=== PATIENT | male | born 1935 | race Caucasian/White ===

== ENCOUNTER 2020-03-19 14:04 | Outpatient (CLI) | payer MEDICARE, OTHER ==
--- NOTE | 2020-03-19 14:38 | RAD ---
EXAM: Two views chest PROVIDED CLINICAL HISTORY: Dyspnea. COMPARISON: None FINDINGS: Dual lead right subclavian cardiac pacemaking device is noted in place. Left subclavian pacemaking le ads are also seen. Cardiac silhouette and pulmonary vasculature are within normal limits. There is nodular prominence in the right infrahilar location. This may be related to prominence of a central p ulmonary vessel, but mass in this region with be difficult to entirely exclude. Follow-up CT thorax is recommended. The lungs are clear. There is evidence of a small hiatal hernia. Bilateral glenohumer al osteoarthropathy is present with what appears to be intra-articular loose body on the right. Degenerative changes are seen in the spine. IMPRESSION: Nodular density right hilar region. While this may related to prominence of a central pulmonary vesse l, this is asymmetric, and further evaluation with CT thorax is recommended to exclude possibility of an enlarged lymph node or mass..
== END 2020-03-19 14:05 | disposition home or self-care (01) ==
LOC: BICRAD 14:04
PROVIDERS: ATTEND Internal Medicine Pulmonary Disease
DX: R06.00 Dyspnea, unspecified (principal); J98.4 Other disorders of lung
CPT/HCPCS: 71046

== ENCOUNTER 2020-03-27 15:36 | Inpatient (IN) | payer MEDICARE, OTHER ==
--- NOTE | 2020-03-27 16:18 | RAD ---
Chest one view HISTORY: Weakness. COMPARISON: 03/19/2020. FINDINGS: Cardiac silhouette is magnified by projection. Pulmonary vasculature are unremarkable. Mediastinum is midline with a dual lead right subclavian cardiac electronic device and 2 leads from a left subclavian approach. There is calcification of the aorta. Prominence of the right hilum is now more pronounced with slight rightward rotation of the patient. No lobar consolidation or evidence of pneumothorax. Retrocardiac density again demonstrated with appe arance of a hiatal hernia. IMPRESSION : Persistent masslike prominence of the right hilum. Consider correlation with CT chest (with IV contra st) for better correlation.
[2020-03-27 16:41] LABS: Mean Corpuscular HGB CONC 31.6 g/dL (32.0-36.0); Mean Corpuscular Volume 85.5 fL (78.0-98.0); Mean Platelet Volume 8.8 fL (7.4-10.4); Platelet Count 278 thou/uL (130-400); RBC Distribution Width 17.9 % (11.5-14.5); Red Blood Cell (RBC) Count 5.18 mill/uL (4.70-6.10); White Blood Cell (WBC) Count 29.1 thou/uL (4.8-10.8)
[2020-03-27 16:59] LABS: ALT (SGPT) 73 U/L (8-55); AST (SGOT) 53 U/L (5-34); Albumin 3.7 g/dL (3.4-4.8); Alkaline Phosphatase 146 U/L (40-110); Anion Gap 18 mmol/L (10-20); BUN (Urea Nitrogen) 36 mg/dL (8.4-25.7); Bilirubin, Total 2.6 mg/dL (0.2-1.2); Calc. Creatinine Clearance 0 mL/min (70-130); Calcium 8.8 mg/dL (7.8-10.44); Carbon Dioxide 25 mmol/L (23-31); Chloride 100 mmol/L (98-107); Globulin 2.9 g/dL (2.4-3.5); Glucose 336 mg/dL (83-110); Lipase 8 U/L (8-78); Potassium 4.7 mmol/L (3.5-5.1); Protein, Total 6.6 g/dL (5.8-8.1); Sodium 138 mmol/L (136-145)
[2020-03-27 17:09] LABS: Band 21 % (5-11); Hypochromia SLIGHT = 6-15 cells (100X) (0-5/hpf); Lymphocytes 5 % (21-51); MDiff Complete? YES; Monocytes 3 % (0-10); Neutrophil 69 % (42-75); Ovalocytes SLIGHT = 2-5 cells (100X) (0-1/hpf); Platelet Morphology Comment Appears Adequate; Polychromasia MODERATE = 3-4 cells (100X) (0-2/hpf); Reactive Lymphocytes 2 % (0-10); Target Cells SLIGHT = 2-5 cells (100X) (0-1/hpf)
[2020-03-27 17:19] LABS: CKMB 1.3 ng/mL (0-6.6)
[2020-03-27 17:54] LABS: Bacteria/HPF None Seen HPF (None Seen); Bilirubin Negative (Negative); Blood, Urine Negative (Negative); Clarity Clear (Clear); Glucose, Urine (Dipstick) 150 mg/dL (Negative); Ketone, Urine Negative (Negative); Leukocyte Negative Leu/uL (Negative); Nitrite Negative (Negative); Protein, Urine (Dipstick) 50 mg/dL (Neg-Trace); RBC/HPF 0-3 HPF (0-3); Specific Gravity, Urine 1.028 (1.002-1.036); Squamous Epithelial 0-3 HPF (0-3); Urobilinogen Normal mg/dL (Less than 2); pH, Urine 5.5 (5.0-9.0)
--- NOTE | 2020-03-27 18:37 | PDOC.HHP ---
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 The patient reports developing progressively worsening dyspnea. Reports chronic intermittent nonproductive cough, denies any wheezing, history COPD/asthma. No history of DVT/PE. He denies any chest pain, heart palpitations or lightheadedness. He endorses swelling to his lower extremities which has been managed with increasing his dose of daily Lasix. Denies fever/c hills. No lost of smell or taste. He says that he has been increasingly thirsty and drinking alot more water than usually. Denies any dysuria or hematuria. Reports having solid BM daily, followed by loose stools for the past week. Denies any nausea, vomiting, or blood/mucus in his stools. He had stool studies recently done at another facility that were negative for Clostridium difficile and other infectious sources. Regarding his chronic interstitial pneumonitis, the patient has seen Dr. Mendieta and says he wants to schedule an outpatient PFT and CT scan of his chest. In terms of his CHF, he had an echocardiogram performed this past February or March. It was done by Dr. Herbert with [place] [facility]. He remembers being told that he had diastolic dysfunction. ED Course: VITAL SIGNS Lauren Mar 27, 2020 15:39 PITA Esquivel Klara BP: 118/69, Pulse: 85, Resp: 31, Temp: 97.7 (Oral), O2 sat: 97 on (Room Air), Time: 03/27/2020 15:39. VITAL SIGNS [facility] Mar 27, 2020 16:34 PITA Alvarez Jennifer BP: 104/85, Pulse: 80, Resp: 20, Temp: 97.6 (Oral), Pain: 0, O2 sat: 99 on (2L Oxygen), Time: 03/27/2020 16:34. VITAL SIGNS [facility] Mar 27, 2020 17:17 PITA Alvarez Jennifer BP: 110/76, Pulse: 80, Resp: 28, Pain: 0, O2 sat: 98 on (2L Oxygen), Time: 03/27/2020 17:17. Medications: None Hospitalist ROS - Review of Systems All other systems reviewed; all pertinent +/- noted in HPI/Subj - Medication Medications: albuterol sulfate inhalation [facility] Mar 27, 2020 16:52 PITA Alvarez Jennifer HFA AEROSOL WITH ADAPTER (GRAM) : Strength - 90 mcg : INHALATION Patient Dose: 2 puff(s) Inhaler every 4 hours prn. finasteride [facility] Mar 27, 2020 16:52 PITA Alvarez Jennifer TABLET : Strength - 5 mg : ORAL Patient Dose: 1 tab(s) Oral once a day. furosemide oral [facility] Mar 27, 2020 16:52 PITA Alvarez Jennifer TABLET : Strength - 40 mg : ORAL Patient Dose: 1 tab(s) Oral once a day (in the morning). lisinopril [facility] Mar 27, 2020 16:52 PITA Alvarez Jennifer TABLET : Strength - 10 mg : ORAL Patient Dose: 1 tab(s) Oral once a day. simvastatin [facility] Mar 27, 2020 16:52 PITA Alvarez Jennifer TABLET : Strength - 40 mg : ORAL Patient Dose: 1 tab(s) null once a day (at bedtime). Stiolto Respimat [facility] Mar 27, 2020 16:53 PITA Alvarez Jennifer mist : Strength - 2.5 mcg-2.5 mcg/actuation : INHALATION Patient Dose: 2 puff(s) once a day. Protonix oral [facility] Mar 27, 2020 16:54 PITA Alvarez Jennifer tablet,delayed release (DR/EC) : Strength - 40 mg : ORAL Patient Dose: once a day. calcium carbonate-vitamin D3 [facility] Mar 27, 2020 16:57 PITA Alvarez Jennifer tablet : Strength - 500 mg calcium (1,250 mg)-125 unit : ORAL Patient Dose: Unknown.500 MG /5 MCG. potassium [facility] Mar 27, 2020 16:58 PITA Alvarez Jennifer tablet : Strength - 99 mg : ORAL Patient Dose: once a day (in the morning). magnesium [facility] Mar 27, 2020 16:58 PITA Alvarez Jennifer tablet : Strength - 200 mg : ORAL Patient Dose: 400 mg once a day (in the morning). Metamucil oral packet [facility] Mar 27, 2020 16:59 PITA Alvarez Jennifer packet : ORAL Patient Dose: once a day. alendronate [facility] Mar 27, 2020 16:59 PITA Alvarez Jennifer tablet : Strength - 70 mg : ORAL Patient Dose: once a week. clobetasol [facility] Mar 27, 2020 17:00 PITA Alvarez Jennifer gel : Strength - 0.05 % : TOPICAL Patient Dose: 2 times a day. Allergies: No Known Drug Allergies Hospitalist History - Past Medical History Source: patient, family, RN notes reviewed Cardiac: reports: CHF, HTN, Hyperlipidemia Pulmonary: reports: Other (Interstitial pneumonitis, atypical TB) Gastrointestinal: reports: GERD Heme/Onc: reports: Cancer (Melanoma treated with biopsy approximately 12 years ago) Musculoskeletal: reports: Other (Osteoporosis) Renal/: reports: Benign prostatic enlarg. (Status post TURP) - Past Surgical History Past Surgical History: reports: Cholecystectomy, TURP, Other (Pacemaker, right rotator cuff) - Family History Other Family History: Noncontributory to this case. - Social History Smoking Status: Former smoker (Quit in 1960 smoked 1 pack/day x 5 years) Alcohol: reports: Rare Drugs: reports: none Occupation: Does not work Activity level: uses cane/walker - Exam General Appearance: awake alert. negative: ill appearing General - other findings: Mild respiratory distress Eye: PERRL, anicteric sclera ENT: normocephalic atraumatic, dry oral mucosa Neck: supple, no JVD, no lymphadenopathy Heart: RRR, no murmur, no gallops, no rubs, normal peripheral pulses Respiratory: CTAB, no wheezes, no rales, no ronchi, tachypneic (Mild, talks in complete sentences) Gastrointestinal: soft, non-tender, no bruit, no guarding, no rigidity, distended Gastrointestinal - other findings: Negative Rovsing sign negative Campbell sign Extremities: no cyanosis, no edema Skin: no rashes Neurological: cranial nerve grossly intact, no focal deficits Musculoskeletal: generalized weakness Psychiatric: normal affect, A&O x 3 Hospitalist Results - Labs Result Diagrams: 03/27/20 16:15 03/27/20 16:15 Lab results: WBC 29.1 thou/uL (4.8-10.8) H 03/27/20 16:15 Hgb 14.0 g/dL (14.0-18.0) 03/27/20 16:15 Hct 44.3 % (42.0-52.0) 03/27/20 16:15 MCV 85.5 fL (78.0-98.0) 03/27/20 16:15 Plt Count 278 thou/uL (130-400) 03/27/20 16:15 Band Neuts % (Manual) 21 % (5-11) H 03/27/20 16:15 Sodium 138 mmol/L (136-145) 03/27/20 16:15 Potassium 4.7 mmol/L (3.5-5.1) 03/27/20 16:15 Chloride 100 mmol/L (98-107) 03/27/20 16:15 Carbon Dioxide 25 mmol/L (23-31) 03/27/20 16:15 BUN 36 mg/dL (8.4-25.7) H 03/27/20 16:15 Creatinine 1.29 mg/dL (0.7-1.3) 03/27/20 16:15 Glucose 336 mg/dL (83-110) H 03/27/20 16:15 Calcium 8.8 mg/dL (7.8-10.44) 03/27/20 16:15 Total Bilirubin 2.6 mg/dL (0.2-1.2) H 03/27/20 16:15 AST 53 U/L (5-34) H 03/27/20 16:15 ALT 73 U/L (8-55) H 03/27/20 16:15 Alkaline Phosphatase 146 U/L (40-110) H 03/27/20 16:15 CK-MB (CK-2) 1.3 ng/mL (0-6.6) 03/27/20 16:15 Troponin I 0.041 ng/mL (< 0.028) H 03/27/20 16:15 Serum Total Protein 6.6 g/dL (5.8-8.1) 03/27/20 16:15 Albumin 3.7 g/dL (3.4-4.8) 03/27/20 16:15 Lipase 8 U/L (8-78) 03/27/20 16:15 Urine Ketones Negative mg/dL (Negative) 03/27/20 17:36 Urine Blood Negative (Negative) 03/27/20 17:36 Urine Nitrite Negative (Negative) 03/27/20 17:36 Ur Leukocyte Esterase Negative Sarah/uL (Negative) 03/27/20 17:36 Urine RBC 0-3 HPF (0-3) 03/27/20 17:36 Urine WBC 4-6 HPF (0-3) A 03/27/20 17:36 Ur Squamous Epith Cells 0-3 HPF (0-3) 03/27/20 17:36 Urine Bacteria None Seen HPF (None Seen) 03/27/20 17:36 - EKG Interpretation EK lead EKG interpreted by Emergency Department Physician at time of study, 12 lead EKG shows, paced rhythm, Rate (beats per minute): 83, Interpretation:, Conduction with, complete right bundle branch block, ST segments normal, T waves, inverted, Garrard normal, Clinical impression:, non-specific EKG, dysrhythmia - atrial, dysrhythmia - ventricular. - Radiology Interpretation Chest x-ray Status: report reviewed by me Additional Comment: IMPRESSION : Persistent masslike prominence of the right hilum. Consider correlation with CT chest (with IV contrast) for better correlation. Hospitalist H&P A/P - Problem (1) Dyspnea Code(s): R06.00 - DYSPNEA, UNSPECIFIED Status: Acute (2) Generalized weakness Code(s): R53.1 - WEAKNESS Status: Acute (3) Leukocytosis Code(s): D72.829 - ELEVATED WHITE BLOOD CELL COUNT, UNSPECIFIED Status: Acute (4) Lung mass Code(s): R91.8 - OTHER NONSPECIFIC ABNORMAL FINDING OF LUNG FIELD Status: Acute (5) Elevated LFTs Code(s): R79.89 - OTHER SPECIFIED ABNORMAL FINDINGS OF BLOOD CHEMISTRY Status: Acute (6) Hyperglycemia Code(s): R73.9 - HYPERGLYCEMIA, UNSPECIFIED Status: Acute (7) Interstitial pneumonitis Code(s): J84.89 - OTHER SPECIFIED INTERSTITIAL PULMONARY DISEASES Status: Acute (8) CHF (congestive heart failure) Code(s): I50.9 - HEART FAILURE, UNSPECIFIED Status: Acute (9) Hypertension Code(s): I10 - ESSENTIAL (PRIMARY) HYPERTENSION Status: Acute (10) Hyperlipidemia Code(s): E78.5 - HYPERLIPIDEMIA, UNSPECIFIED Status: Acute (11) CKD (chronic kidney disease) stage 3, GFR 30-59 ml/min Code(s): N18.30 - CHRONIC KIDNEY DISEASE, STAGE 3 UNSPECIFIED Status: Acute (12) GERD (gastroesophageal reflux disease) Code(s): K21.9 - GASTRO-ESOPHAGEAL REFLUX DISEASE WITHOUT ESOPHAGITIS Status: Acute (13) BPH (benign prostatic hyperplasia) Code(s): N40.0 - BENIGN PROSTATIC HYPERPLASIA WITHOUT LOWER URINRY TRACT SYMP Status: Acute - Plan Plan: 84/M with PMH interstitial pneumonitis, melanoma, CHF presents for worsening dyspnea. Admit to telemetry floor, observation status. Expected length of stay less than 2 midnights. #Dyspnea Presented RR 31, 97% room air Baseline 2 L nasal cannula at home. CXR persistent masslike prominence right hilum, recommend f/u CT chest contrast Sees Dr. Mendieta, scheduled for outpatient PFT and CT chest. Restart home maintenance inhaler. Supplemental O2 as needed Trend troponins, check TSH, FLP, mag. Give aspirin. #Generalized weakness Likely multifactorial. 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 Reported loose stools daily. Stool work-up performed 03/19/2020 at outpatient facility was negative for C. difficile and infectious sources. Order abdominal XR 2-view. #Leukocytosis presented WBCs 29.1, with bandemia CXR and UA unremarkable for acute infection afebrile Taking chronic steroids, likely culprit. #Lung mass Incidental finding on chest x-ray. Recommend CT with contrast follow-up. Patient has history of interstitial pneumonitis and melanoma. Consult pulmonology to determine further course. #Elevated LFTs Reports dark urine and diarrhea. UA no bilirubin/urobilinogen. Order RUQ US Order abdominal x-ray, 2 view Check hepatitis panel and lactic acid. Order hepatic function in a.m. #Hyperglycemia Presented blood glucose 336 On chronic steroids. Check hemoglobin A1c Consistent carb diet Moderate ISS. Accu-Cheks AC at bedtime. #Interstitial pneumonitis On 2 L nasal cannula at home. Has appointment with Dr. Mendieta for PFTs and CT chest. Consult pulmonology. #CHF Presented BNP [address] Herbert, [place] [facility]. Patient remembers being told diastolic dysfunction. Request of records by nursing. Trend troponins. Start aspirin. Restart home dose lisinopril Lasix. #Hypertension Presented normotensive. Restart home dose lisinopril and Lasix. #Hyperlipidemia Check FLP Restart home dose simvastatin. #CKD 3 Appears stable. #GERD Restart home dose Protonix. #BPH Status post TURP Restart home dose finasteride. SCDs for DVT prophylaxis. Protonix for GI prophylaxis. CODE STATUS is full code. Contact is his spouse Lorrie Pendleton at [phone]. Discussed the case with attending physician, Dr. Queen, who agrees with plan of care.
[2020-03-27] MEDS ORDERED: Nitroglycerin 0.4 MG TAB (25 Tab Bottle) SL PRN (19:13)
[2020-03-27] MEDS ORDERED: Dextrose 5% in Water 1,000 ML IV PRN (19:30)
[2020-03-27] MEDS ORDERED: Dextrose 50% Abboject 50 ML SYRINGE SLOW IVP PRN (19:30)
[2020-03-27] MEDS ORDERED: Aspirin 325 MG TAB PO SCH (19:30)
[2020-03-27] MEDS ORDERED: Calcium Carbonate 500 MG ChewTAB PO PRN (19:33)
[2020-03-27] MEDS ORDERED: Acetaminophen 325 MG TAB PO PRN (19:33)
--- NOTE | 2020-03-27 19:54 | RAD ---
2 views abdomen: 03/27/2020 COMPARISON: None HISTORY: Stool changes, evaluate for bowel obstruction FINDINGS: Incompletely imaged transvenous pacing leads noted. Upright imaging demonstrates no free in traperitoneal air. No small bowel dilation or air-fluid levels. The bowel gas pattern appears nonobstructed. There is multilevel degenerative change within the lumbar spine, not optimally assessed on this exam. IMPRESSION: No evidence for small bowel obstruction or free intraperitoneal air.
[2020-03-27 19:59] LABS: Troponin I 0.021 ng/mL (< 0.028)
[2020-03-27 21:30] LABS: Lactic Acid 3.1 mmol/L (0.5-2.2)
[2020-03-27] MEDS ORDERED: Aspirin Chewable 81 MG TAB ONE (21:46)
[2020-03-27 21:47] LABS: Troponin I 0.023 ng/mL (< 0.028)
[2020-03-28 05:52] LABS: SARS-CoV-2 PCR by NAA Not Detected (NotDetected)
[2020-03-28 07:28] LABS: Hemoglobin A1c 9.1 % (4.0-6.0)
[2020-03-28 07:42] LABS: ALT (SGPT) 54 U/L (8-55); AST (SGOT) 29 U/L (5-34); Albumin 3.3 g/dL (3.4-4.8); Alkaline Phosphatase 115 U/L (40-110); Anion Gap 15 mmol/L (10-20); BUN (Urea Nitrogen) 37 mg/dL (8.4-25.7); Bilirubin, Direct 0.9 mg/dL (0.1-0.3); Calc. Creatinine Clearance 0 mL/min (70-130); Calcium 8.5 mg/dL (7.8-10.44); Carbon Dioxide 27 mmol/L (23-31); Chloride 103 mmol/L (98-107); Globulin 2.9 g/dL (2.4-3.5); Glucose 162 mg/dL (83-110); Potassium 3.8 mmol/L (3.5-5.1); Protein, Total 6.2 g/dL (5.8-8.1); Sodium 141 mmol/L (136-145)
[2020-03-28 07:44] LABS: Cardiac Risk 2.7 (Less than 4.5)
[2020-03-28 07:47] VITALS: BMI 22.6
[2020-03-28 08:03] LABS: HBCM Index 0.12 S/CO (0-0.79); HBSAg Index 0.21 S/CO (0-0.99); Hep A IgM AB Non-Reactive (NonReactive); Hep A IgM S/CO 0.16 S/CO (0-0.79); Hep B Surf Ag Non-Reactive S/CO (NonReactive); Hep C IgG Ab Non-Reactive (NonReactive); Hepatitis B Core IgM Abs Non-Reactive (NonReactive)
[2020-03-28 08:39] LABS: #Eosinphils 0.1 thou/uL (0.0-0.7); #Lymphocytes 1.2 thou/uL (1.20-3.40); #Monocytes 0.8 thou/uL (0.11-0.59); #Neutrophils 15.3 thou/uL (1.40-6.50); %Eosinophils 0.4 % (0.0-10.0); %Monocytes 4.7 % (0.0-10.0); %Neutrophils 87.9 % (42.0-75.0); Mean Corpuscular HGB CONC 31.8 g/dL (32.0-36.0); Mean Corpuscular Hemoglobin 27.4 pg (27.0-31.0); Mean Corpuscular Volume 86.3 fL (78.0-98.0); Mean Platelet Volume 8.7 fL (7.4-10.4); Platelet Count 249 thou/uL (130-400); RBC Distribution Width 17.7 % (11.5-14.5); Red Blood Cell (RBC) Count 4.72 mill/uL (4.70-6.10); White Blood Cell (WBC) Count 17.4 thou/uL (4.8-10.8)
[2020-03-28] MEDS ORDERED: Finasteride 5 MG TAB PO SCH (09:00)
[2020-03-28] MEDS: Lisinopril 10 MG TAB PO SCH (09:05)
[2020-03-28] MEDS: Aspirin Chewable 81 MG TAB PO SCH (09:05)
[2020-03-28] MEDS: Magnesium Oxide 400 MG TAB PO SCH (09:05)
[2020-03-28] MEDS: Furosemide 40 MG TAB PO SCH (09:06)
--- NOTE | 2020-03-28 09:15 | ULT ---
GALLBLADDER ULTRASOUND: Date: 03/28/2020 HISTORY: Right upper quadrant pain. FINDINGS: Real-time imaging of the right upper quadrant shows gallbladder to have been removed. The common duct is 3.0 mm. The liver is of increased echogenicity. There is some focal fatty sparing in the region o f the caudate lobe. Pancreas is almost totally obscured. The right kidney is normal in size and not obstructed. IMPRESSION: 1. Fatty change of the liver which measures 17.0 cm in length. 2. Post cholecystectomy change. POS: ALVARO
[2020-03-28] MEDS ORDERED: Iopamidol-370 76% 500 ML 1 ML ONE (10:42)
[2020-03-28] MEDS: HumaLOG 300 UNITS/3 ML VIAL SC PRN ×2 (13:34→22:15)
--- NOTE | 2020-03-28 14:16 | PDOC.HOSPP ---
- Subjective Encounter Date: 03/28/20 Encounter Time: 14:10 Subjective: f/u for dyspnea/ILD/chronic hypoxic resp failure on O2 @ 2L/min at baseline. R hilar mass noted on PCXR. - Objective Vital Signs & Weight: Vital Signs (12 hours) Temp Pulse Resp BP Pulse Ox 03/28/20 11:32 97.7 F 82 20 100/71 94 L 03/28/20 08:52 97.8 F 80 19 137/86 96 03/28/20 04:00 97.6 F 79 23 H 123/77 96 Weight Weight 144 lb 13.499 oz Result Diagrams: 03/28/20 07:10 03/28/20 07:10 Additional Labs: Accuchecks 03/28/20 03/28/20 10:33 05:48 POC Glucose 239 H 140 H Laboratory Tests 03/27/20 03/27/20 03/27/20 16:15 16:15 20:49 WBC 29.1 H Neutrophils % Neutrophils % (Manual) 69 Band Neuts % (Manual) 21 H BUN 36 H Hemoglobin A1c Lactic Acid TSH 3rd Generation Hepatitis A IgM Ab Hep Bs Antigen Hep B Core IgM Ab Hepatitis C Antibody SARS-CoV-2 RNA (REJI) Not Detected 03/27/20 03/27/20 03/28/20 20:57 20:57 07:10 WBC Neutrophils % Neutrophils % (Manual) Band Neuts % (Manual) BUN Hemoglobin A1c Lactic Acid 3.1 H TSH 3rd Generation 2.8949 Hepatitis A IgM Ab Non-Reactive Hep Bs Antigen Non-Reactive Hep B Core IgM Ab Non-Reactive Hepatitis C Antibody Non-Reactive SARS-CoV-2 RNA (REJI) 03/28/20 03/28/20 07:10 07:10 WBC Neutrophils % 87.9 H Neutrophils % (Manual) Band Neuts % (Manual) BUN Hemoglobin A1c 9.1 H Lactic Acid TSH 3rd Generation Hepatitis A IgM Ab Hep Bs Antigen Hep B Core IgM Ab Hepatitis C Antibody SARS-CoV-2 RNA (REJI) Laboratory Tests 03/27/20 16:15 B-Natriuretic Peptide 948.6 H Radiology Reviewed by me: Yes (PCXR - R hilar mass-like prominence) EKG Reviewed by me: Yes (Tele - V-pacing, A-fib) Hospitalist ROS - Medication Medications: Active Medications Generic Name Dose Route Start Last Admin Trade Name Freq PRN Reason Stop Dose Admin Aspirin 81 mg 03/28/20 09:00 03/28/20 09:05 Aspirin Chewable 81 Mg Tab PO 81 mg DAILY PREM Administration Finasteride 5 mg 03/28/20 09:00 03/28/20 09:05 Finasteride 5 Mg Tab PO 5 mg DAILY PREM Administration Furosemide 40 mg 03/28/20 09:00 03/28/20 09:06 Furosemide 40 Mg Tab PO 40 mg DAILY PREM Administration Insulin Human Lispro 0 units 03/27/20 19:30 03/28/20 13:34 Humalog 300 Units/3 Ml Vial SC 4 unit .MODERATE SLIDING SC PRN Administration Moderate Correctional Scale Lisinopril 10 mg 03/28/20 09:00 03/28/20 09:05 Lisinopril 10 Mg Tab PO 10 mg DAILY PREM Administration Magnesium Oxide 400 mg 03/28/20 09:00 03/28/20 09:05 Magnesium Oxide 400 Mg Tab PO 03/29/20 09:01 400 mg DAILY PREM Administration Pantoprazole Sodium 40 mg 03/28/20 09:00 03/28/20 09:06 Pantoprazole 40 Mg Tab PO 40 mg DAILY PREM Administration - Exam General Appearance: NAD, awake alert Eye: PERRL, anicteric sclera ENT: normocephalic atraumatic, no oropharyngeal lesions Neck: supple, symmetric, no JVD, no thyromegaly, no lymphadenopathy Heart: RRR, no gallops, no rubs, normal peripheral pulses Heart - other findings: S1, S2 Respiratory: tachypneic Respiratory - other findings: diminished in bases, occ rhonchi Gastrointestinal: soft, non-tender, non-distended, normal bowel sounds, no palpable masses Extremities: no cyanosis, no clubbing, no edema Skin: normal turgor Neurological: cranial nerve grossly intact, no new deficit Musculoskeletal: normal tone, generalized weakness Psychiatric: normal affect, A&O x 3 Hosp A/P (1) Dyspnea Code(s): R06.00 - DYSPNEA, UNSPECIFIED Status: Acute Qualifiers: Dyspnea type: dyspnea on exertion Qualified Code(s): R06.00 - Dyspnea, unspecified Plan: Suspect multifactorial including ILD and CHF, continue O2 support, bronchodilators (2) Chronic respiratory failure with hypoxia Code(s): J96.11 - CHRONIC RESPIRATORY FAILURE WITH HYPOXIA Status: Chronic Plan: Continue O2 supplementation at 2L/min NC, see mgmt as outlined above, check ABG (3) CHF (congestive heart failure) Code(s): I50.9 - HEART FAILURE, UNSPECIFIED Status: Chronic Qualifiers: Heart failure type: diastolic Plan: Suspected, continue Lasix and monitor daily weight and I/O's, EF 55-60% with jason stolic dysfunction (4) CKD (chronic kidney disease) stage 3, GFR 30-59 ml/min Code(s): N18.30 - CHRONIC KIDNEY DISEASE, STAGE 3 UNSPECIFIED Status: Chronic Plan: Avoid nephrotoxic meds and limit contrast exposure (5) Generalized weakness Code(s): R53.1 - WEAKNESS Status: Chronic Plan: Suspect multifactorial, PT evaluation for functional assessment (6) Hypertension Code(s): I10 - ESSENTIAL (PRIMARY) HYPERTENSION Status: Chronic Qualifiers: Hypertension type: essential hypertension Qualified Code(s): I10 - Essential (primary) hypertension (7) Interstitial pneumonitis Code(s): J84.89 - OTHER SPECIFIED INTERSTITIAL PULMONARY DISEASES Status: Acute Plan: Suspected, continue Trelegy Ellipta, Prednisone, O2 support (8) Lung mass Code(s): R91.8 - OTHER NONSPECIFIC ABNORMAL FINDING OF LUNG FIELD Status: Acute Plan: R hilar prominence, check CT chest today with contrast, Consult Pulmonology - Plan plan discussed w/ family, PT/OT, respiratory therapy, out of bed/ambulate, DVT proph w/SCDs Continue supportive mgmt Check CT chest with contrast regarding R hilar mass Check RA ABG PT evaluation for functional assessment Consult Pulmonology AM lab: CMP, CBC, BNP
[2020-03-28 15:10] LABS: Actual Bicarbonate (HCO3a) 23.1 mEq/L (22-28); Base Excess (BEa) 2.1 mEq/L (-2.0 to +3.0); CO2 Tension 26.4 mmHg (35.0-45.0); Calcium, Ionized (arterial) 1.06 mmol/L (1.12-1.30); Carboxyhemoglobin (COHb) 1.4 gm% (0.0-3.0); O2 Tension (PaO2), arterial 73.8 mmHg (> 60.0); Potassium - ABG Lab 3.61 mmol/L (3.70-5.30)
[2020-03-28 15:20] LABS: Puncture Site LBA; pH, Arterial 7.56 (7.35-7.45)
--- NOTE | 2020-03-28 16:44 | CT ---
CT CHEST WITH CONTRAST CLINICAL INDICATION: Possible mass. Interstitial lung disease. Suggestion right hilar mass on chest x-ray. COMPARISON: Chest x-ray on 03/27/2020 FINDINGS: Aorta: Vascular calcifications are seen in the thoracic aorta. Pulmonary arteries: There is a prominent filling defect within the junction of the right main pulmona ry artery and right upper lobe pulmonary artery suggestive of an embolus. There are also filling defects seen within the distal left main pulmonary artery and extending into segmental left lower lob e pulmonary arteries compatible with pulmonary emboli. Lungs: There are scattered linear areas within the lungs bilaterally likely due to chronic lung payne es and areas of scarring. There are patchy and linear parenchymal density seen at the posterior right lung base which may be related to pneumonitis. Trace right pleural effusion is present. A 9 mm pulmonary nodule with associated linear densities is seen in the anteromedial aspect of the ri ght upper lobe. Few irregular nodular densities are also seen at each lung base measuring less than a centimeter. Mediastinum: There are left subclavian cardiac pacemaking leads with a right subclavian cardiac pacem aking device noted in place. Vascular calcifications are seen in the coronary arteries. Hiatal hernia is present with the fundus of the stomach above the level of the hemidiaphragms. No enlarged l ymph nodes are seen by CT size criteria. Thyroid gland: Small in size. Osseous structures: Advanced bilateral glenohumeral osteoarthropathy is present greater on the right. Degenerative changes are seen in the spine. There are compression fractures involving the L1 and L2 vertebral bodies with advanced degenerative changes and loss of the intervertebral disc space at t his level. Irregularity along the margins of the vertebral bodies is likely related to severe degenerative changes and likely sequela of compression deformities. Chest wall: No abnormality visualized. Upper abdomen: There is diminished attenuation of the liver likely due to hepatic steatosis. Postchol ecystectomy changes are noted. Subcentimeter too small to characterize hypodense lesions are seen in the spleen. IMPRESSION: 1. Evidence of bilateral pulmonary emboli. 2. Patchy parenchymal densities right lung base which could be related to pneumonitis. Associated tra ce right pleural effusion is present. Follow-up to resolution is recommended. 3. Chronic lung changes. 4. Pulmonary nodule right upper lobe. Follow-up evaluation in 6 months is recommended. 5. Hiatal hernia. 6. Chronic changes at the L1-2 level with [id number] compression fractures and sclerosis along the endplates at this level with severe loss of intervertebral disc height which is likely attributable to degenerative change and apparent partial fusion. 7. Above findings discussed with Marian, nurse on the hospital floor in charge of patient's care on at 1638 hours. Findings were also discussed with Dr. Allen on 03/28/2020 at 1641 hours.
--- NOTE | 2020-03-28 16:46 | PDOC.BPN ---
- Brief Progress Note Encounter Date: 03/28/20 Encounter Time: 16:45 Called by radiology with CTA chest showing bilat PE's, RLL infiltrate but no R hilar mass. RUL pulmonary nodule recommended with follow up imaging in 6 months. Start Lovenox 60mg sc BID and Rocephin/Zithromax.
--- NOTE | 2020-03-28 17:42 | CON ---
DATE OF CONSULTATION: 03/28/2020 CONSULTING PHYSICIAN: Hospitalist Group. REASON FOR CONSULTATION: Possible lung mass. HISTORY OF PRESENT ILLNESS: The patient is an 84-year-old male, who is a patient of Dr. Mendieta and initially saw him on 03/19/2020. He was admitted yesterday with increasing shortness of breath, which is basically chronic in nature. He has a history of hypersensitivity pneumonitis diagnosed many years ago. He was on prolonged steroid therapy for that and had numerous complications. He also has significant diastolic cardiac dysfunction with baseline BNP that can reach above 3000. At the time of his visit on 03/19/2020, he was complaining of being unable to ambulate 20 feet without getting short of breath. He was set up for CT and PFTs. performed prior to this hospitalization, but he did have a CT done this afternoon. PAST MEDICAL HISTORY: 1. Hypersensitivity pneumonitis. 2. Diastolic heart dysfunction. 3. Chronic anemia. PAST SURGICAL HISTORY: 1. Pacemaker placement. 2. Cholecystectomy. 3. Rotator cuff surgery. MEDICATIONS: Prior to admission; 1. Stiolto Respimat two puffs daily. 2. Albuterol metered-dose inhaler as needed. 3. Lisinopril 10 mg daily. 4. Finasteride 5 mg daily. 5. Furosemide 40 mg daily. 6. Simvastatin 40 mg daily. 7. Protonix 40 mg daily. 8. Calcium 500 mg b.i.d. 9. Potassium chloride unknown dose daily. 10. Metamucil daily. 11. Alendronate 70 mg each Tuesday. 12. He had been on a prednisone taper. SOCIAL HISTORY: Quit smoking over 60 years ago. Does not consume alcohol. Does not use illicit drugs. REVIEW OF SYSTEMS: Remarkable for shortness of breath and edema. Otherwise, 12-point review of systems negative. PHYSICAL EXAMINATION: VITAL SIGNS: Temperature 97.7, pulse 82, respirations 20, O2 saturation 94% on 2 L, and blood pressure 100/71. The patient is an 84-year-old male, who appears in no acute distress, but is dyspneic at rest. HEENT: Pupils are reactive. Sclerae are icteric. Oropharynx clear. NECK: No adenopathy or JVD. LUNGS: Few inspiratory crackles in both bases. CARDIAC: S1 and S2. Regular without audible murmur. ABDOMEN: Soft and nontender to palpation. EXTREMITIES: No clubbing or cyanosis. Trace edema. LABORATORY DATA: White blood cell count 17, hematocrit 40, and platelet count 249. PH of 7.56, pCO2 of 25, pO2 of 73 on 2 L. AA gradient of 92. Sodium 141, potassium 3.8, chloride 103, CO2 of 27, BUN 37, creatinine 1.1, and glucose 162. BNP was 948. COVID serology was negative. CT of the chest was reviewed. The previously mentioned lung mass looks like to me is probably pulmonary artery, but it does look like he has from thromboembolism present in the right pulmonary artery extending down left side also. He also has chronic interstitial changes bilaterally. ASSESSMENT: 1. Pulmonary embolism. 2. Chronic interstitial lung disease. 3. Diastolic heart dysfunction. PLAN: Anticoagulation with enoxaparin with conversion over to Eliquis or Xarelto. Job ID: [id number]
[2020-03-28] MEDS: cefTRIAXone\\ROCEPHIN 2 GM in Sodium Chloride 0.9% 100 ML IVPB SCH (18:22)
[2020-03-28] MEDS: Mometasone 100 MCG/PUFF (1 INHALER) INH SCH (19:02)
[2020-03-28] MEDS ORDERED: Enoxaparin Sodium 60 MG/0.6 ML SYRINGE SC SCH (21:00)
[2020-03-28] MEDS: Azithromycin 500 MG in Sodium Chloride 0.9% 250 ML 250 ML IVPB SCH (22:14)
[2020-03-28] MEDS: Atorvastatin Calcium 20 MG TAB PO SCH (22:14)
[2020-03-29 05:02] LABS: #Basophils 0.1 thou/uL (0.0-0.2); #Eosinphils 0.1 thou/uL (0.0-0.7); #Lymphocytes 1.2 thou/uL (1.20-3.40); #Monocytes 0.8 thou/uL (0.11-0.59); #Neutrophils 9.7 thou/uL (1.40-6.50); %Basophils 0.9 % (0.0-1.0); %Eosinophils 0.4 % (0.0-10.0); %Lymphocytes 10.4 % (21.0-51.0); %Monocytes 6.6 % (0.0-10.0); %Neutrophils 81.6 % (42.0-75.0); Hemoglobin 12.5 g/dL (14.0-18.0); Mean Corpuscular HGB CONC 32.3 g/dL (32.0-36.0); Mean Corpuscular Hemoglobin 27.6 pg (27.0-31.0); Mean Corpuscular Volume 85.6 fL (78.0-98.0); Mean Platelet Volume 8.7 fL (7.4-10.4); Platelet Count 215 thou/uL (130-400); RBC Distribution Width 17.7 % (11.5-14.5); Red Blood Cell (RBC) Count 4.53 mill/uL (4.70-6.10); White Blood Cell (WBC) Count 11.9 thou/uL (4.8-10.8)
[2020-03-29 05:27] LABS: ALT (SGPT) 55 U/L (8-55); AST (SGOT) 30 U/L (5-34); Albumin 3.1 g/dL (3.4-4.8); Alkaline Phosphatase 115 U/L (40-110); Anion Gap 13 mmol/L (10-20); BUN (Urea Nitrogen) 28 mg/dL (8.4-25.7); Bilirubin, Total 1.3 mg/dL (0.2-1.2); Calc. Creatinine Clearance 60 mL/min (70-130); Calcium 7.9 mg/dL (7.8-10.44); Carbon Dioxide 23 mmol/L (23-31); Chloride 106 mmol/L (98-107); Globulin 2.8 g/dL (2.4-3.5); Glucose 129 mg/dL (83-110); Potassium 3.2 mmol/L (3.5-5.1); Protein, Total 5.9 g/dL (5.8-8.1); Sodium 139 mmol/L (136-145)
[2020-03-29] MEDS: Mometasone 100 MCG/PUFF (1 INHALER) INH SCH ×2 (07:11→19:31)
[2020-03-29] MEDS ORDERED: Apixaban 5 MG TAB PO SCH (09:00)
[2020-03-29] MEDS: Magnesium Oxide 400 MG TAB PO SCH (10:43)
[2020-03-29] MEDS: Lisinopril 10 MG TAB PO SCH (10:43)
[2020-03-29] MEDS: Furosemide 40 MG TAB PO SCH (10:44)
[2020-03-29] MEDS: Finasteride 5 MG TAB PO SCH (10:44)
[2020-03-29] MEDS: predniSONE 5 MG TAB PO SCH (10:45)
[2020-03-29] MEDS: Aspirin Chewable 81 MG TAB PO SCH (10:50)
--- NOTE | 2020-03-29 12:18 | EKG ---
Test Reason : Blood Pressure : / mmHG Vent. Rate : 083 BPM Atrial Rate : 083 BPM P-R Int : 212 ms QRS Dur : 116 ms QT Int : 416 ms P-R-T Axes : 128 069 -83 degrees QTc Int : 488 ms Demand pacemaker; interpretation is based on intrinsic rhythm Undetermined rhythm Right bundle branch block Inferior infarct , age undetermined Marked T wave abnormality, consider lateral ischemia Abnormal ECG Confirmed by CLARKE EVANS DO ([id number]), brands editor ADAM SCHERER ([id number]) on 03/29/2020 12:18:41 PM Referred By: Confirmed By:CLARKE EVANS DO
[2020-03-29] MEDS: HumaLOG 300 UNITS/3 ML VIAL SC PRN ×3 (12:34→20:39)
--- NOTE | 2020-03-29 14:58 | PDOC.HOSPP ---
- Subjective Encounter Date: 03/29/20 Encounter Time: 14:56 Subjective: 84-year-old patient seen and examined today at the bedside. His was present when I visited. Patient with chronic respiratory failure on home O2 and interstitial pneumonitis who was admitted with worsening shortness of breath. Their was present today and she gives most of the history. She reported the patient has been generally inactive due to his breathing problem. He tends to lay around all day for the most part and only gets around with family's help. He arrived to the hospital due to the aforementioned symptoms and he was admitted due to worsening respiratory failure. He was found to have bilateral pulmonary embolus involving the right main pulmonary artery and the left main pulmonary vessels as well. He was on subcutaneous Lovenox for I have switched him over to Eliquis. He seems to be hemodynamically stable with in a stable blood pressure. Family requested for mammography technologist consultation due to his known cardiac history and we will go ahead and consult cardiology for help. - Objective Vital Signs & Weight: Vital Signs (12 hours) Temp Pulse Pulse Resp BP BP BP 03/29/20 13:24 90 20 03/29/20 11:35 97.5 F L 88 19 03/29/20 10:43 141/81 H 03/29/20 09:42 95 146/78 H 145/78 H 03/29/20 07:36 03/29/20 07:35 97.7 F 87 20 03/29/20 07:05 85 20 03/29/20 04:43 97.6 F 82 21 H BP Pulse Ox Pulse Ox 03/29/20 13:24 03/29/20 11:35 115/66 100 03/29/20 10:43 03/29/20 09:42 95 03/29/20 07:36 93 L 03/29/20 07:35 141/81 H 93 L 03/29/20 07:05 03/29/20 04:43 117/80 93 L Weight Weight 151 lb 14.376 oz I&O: 03/28/20 03/29/20 03/30/20 06:59 06:59 06:59 Intake Total 1230 Output Total 650 Balance 580 Result Diagrams: 03/29/20 04:07 03/29/20 04:07 Additional Labs: Accuchecks 03/29/20 03/29/20 03/28/20 10:52 05:34 20:23 POC Glucose 187 H 193 H 239 H 03/28/20 17:11 POC Glucose 181 H Radiology Reviewed by me: Yes EKG Reviewed by me: Yes Hospitalist ROS - Review of Systems Constitutional: reports: chills Respiratory: reports: shortness of breath, SOB with excertion Gastrointestinal: reports: nausea Neurological: reports: weakness - Medication Medications: Active Medications Generic Name Dose Route Start Last Admin Trade Name Freq PRN Reason Stop Dose Admin Albuterol/Ipratropium 3 ml 03/28/20 19:00 03/29/20 13:24 Ipratropium/Albuterol Sulfate 3 Ml Neb NEB 3 ml [id number] PREM Administration Apixaban 5 mg 03/29/20 09:00 03/29/20 10:44 Apixaban 5 Mg Tab PO 5 mg BID PREM Administration Aspirin 81 mg 03/28/20 09:00 03/29/20 10:50 Aspirin Chewable 81 Mg Tab PO 81 mg DAILY PREM Administration Atorvastatin Calcium 20 mg 03/28/20 21:00 03/28/20 22:14 Atorvastatin Calcium 20 Mg Tab PO 20 mg HS PREM Administration Finasteride 5 mg 03/29/20 09:00 03/29/20 10:44 Finasteride 5 Mg Tab PO 5 mg DAILY PREM Administration Furosemide 40 mg 03/28/20 09:00 03/29/20 10:44 Furosemide 40 Mg Tab PO 40 mg DAILY PREM Administration Ceftriaxone Sodium 2 gm/ 100 mls @ 200 mls/hr 03/28/20 18:00 03/28/20 18:22 Sodium Chloride IVPB 100 mls 1800 PREM Administration Azithromycin 500 mg/ Sodium 250 mls @ 250 mls/hr 03/28/20 20:00 03/28/20 22:14 Chloride IVPB 250 mls 2000 PREM Administration Insulin Human Lispro 0 units 03/27/20 19:30 03/29/20 12:34 Humalog 300 Units/3 Ml Vial SC 2 unit .MODERATE SLIDING SC PRN Administration Moderate Correctional Scale Insulin Human Lispro 0 units 03/27/20 19:30 03/28/20 22:15 Humalog 300 Units/3 Ml Vial SC 2 unit .BEDTIME SLIDING SC PRN Administration Bedtime Correctional Scale Lisinopril 10 mg 03/28/20 09:00 03/29/20 10:43 Lisinopril 10 Mg Tab PO 10 mg DAILY PREM Administration Mometasone Furoate 100 mcg 03/28/20 18:30 03/29/20 07:11 Mometasone 100 Mcg/Puff (1 Inhaler) INH 1 puff BID-RT PREM Administration Pantoprazole Sodium 40 mg 03/28/20 09:00 03/29/20 10:44 Pantoprazole 40 Mg Tab PO 40 mg DAILY PREM Administration Prednisone 5 mg 03/29/20 09:00 03/29/20 10:45 Prednisone 5 Mg Tab PO 5 mg DAILY PREM Administration Sodium Chloride 10 ml 03/27/20 19:13 03/29/20 10:51 Flush - Normal Saline 10 Ml Syringe IVF 10 ml PRN PRN Administration Saline Flush - Exam General Appearance: awake alert, ill appearing Eye: PERRL, anicteric sclera ENT: normocephalic atraumatic, no oropharyngeal lesions Neck: supple, symmetric, no JVD, no thyromegaly Heart: RRR, no murmur, no gallops, no rubs, normal peripheral pulses Respiratory: CTAB, no wheezes Gastrointestinal: soft, non-tender, non-distended, normal bowel sounds, no hepatomegaly, no splenomegaly Extremities: no cyanosis, no clubbing Skin: normal turgor, no lesions Neurological: cranial nerve grossly intact Psychiatric: normal affect, normal behavior, A&O x 3 Hosp A/P (1) Bilateral pulmonary embolism Code(s): I26.99 - OTHER PULMONARY EMBOLISM WITHOUT ACUTE COR PULMONALE Status: Acute Plan: He has been on Lovenox and I am going to switch him to oral Eliquis. Hemodynamically he appears to be stable. It appears that the PE was provoked secondary to his inactivity. He will need at least 3 to 6 months of oral anticoagulation. (2) CKD (chronic kidney disease) stage 3, GFR 30-59 ml/min Code(s): N18.30 - CHRONIC KIDNEY DISEASE, STAGE 3 UNSPECIFIED Status: Chronic (3) Chronic respiratory failure with hypoxia Code(s): J96.11 - CHRONIC RESPIRATORY FAILURE WITH HYPOXIA Status: Chronic Plan: He appears stable on his home O2. (4) Generalized weakness Code(s): R53.1 - WEAKNESS Status: Chronic - Plan old records reviewed/req, PT/OT, respiratory therapy, incentive spirometry, out of bed/ambulate
--- NOTE | 2020-03-29 15:58 | PRG ---
DATE OF SERVICE: 03/29/2020 SUBJECTIVE: He is in fairly good spirits. Has no acute complaints. Continues to be mildly short of breath. OBJECTIVE: VITAL SIGNS: O2 saturations 100% on 3 L, temperature 97.5, pulse 90, respirations 20, blood pressure 115/66. HEENT: Unremarkable. NECK: No adenopathy or JVD. LUNGS: Clear. CARDIAC: S1 and S2. Regular. ABDOMEN: Soft. EXTREMITIES: No edema. ASSESSMENT: Pulmonary embolism. PLAN: Anticoagulation for at least 6 months. I would probably postpone his PFTs until after we had chance to see what happens with anticoagulation. I agree with the exchange mechanic to [place]. Hopefully, he can be discharged to home by Tuesday. Job ID: [id number]
[2020-03-29] MEDS ORDERED: Alendronate Sodium 70 mg Tablet PO SCH (16:00)
[2020-03-29 17:05] LABS: Hemoglobin 12.9 g/dL (14.0-18.0); Platelet Count 227 thou/uL (130-400)
[2020-03-29] MEDS: cefTRIAXone\\ROCEPHIN 2 GM in Sodium Chloride 0.9% 100 ML IVPB SCH (18:16)
[2020-03-29] MEDS: Azithromycin 500 MG in Sodium Chloride 0.9% 250 ML 250 ML IVPB SCH (20:33)
[2020-03-29] MEDS: Atorvastatin Calcium 20 MG TAB PO SCH (20:38)
[2020-03-29] MEDS: Apixaban 5 MG TAB PO SCH (20:39)
[2020-03-29] MEDS: Metamucil PACK PO SCH (20:39)
[2020-03-30 04:36] LABS: #Eosinphils 0.1 thou/uL (0.0-0.7); #Lymphocytes 1.1 thou/uL (1.20-3.40); #Monocytes 0.8 thou/uL (0.11-0.59); #Neutrophils 8.7 thou/uL (1.40-6.50); %Eosinophils 0.9 % (0.0-10.0); %Lymphocytes 10.5 % (21.0-51.0); %Neutrophils 81.6 % (42.0-75.0); Hemoglobin 11.6 g/dL (14.0-18.0); Mean Corpuscular Hemoglobin 27.4 pg (27.0-31.0); Mean Corpuscular Volume 85.6 fL (78.0-98.0); Mean Platelet Volume 8.5 fL (7.4-10.4); Platelet Count 226 thou/uL (130-400); RBC Distribution Width 17.5 % (11.5-14.5); Red Blood Cell (RBC) Count 4.23 mill/uL (4.70-6.10); White Blood Cell (WBC) Count 10.7 thou/uL (4.8-10.8)
[2020-03-30 04:59] LABS: Anion Gap 14 mmol/L (10-20); BUN (Urea Nitrogen) 25 mg/dL (8.4-25.7); Calc. Creatinine Clearance 58 mL/min (70-130); Calcium 7.9 mg/dL (7.8-10.44); Carbon Dioxide 24 mmol/L (23-31); Chloride 107 mmol/L (98-107); Glucose 124 mg/dL (83-110); Potassium 3.2 mmol/L (3.5-5.1); Sodium 142 mmol/L (136-145)
[2020-03-30] MEDS: Mometasone 100 MCG/PUFF (1 INHALER) INH SCH ×2 (07:25→19:15)
[2020-03-30] MEDS: Finasteride 5 MG TAB PO SCH (08:11)
[2020-03-30] MEDS: Apixaban 5 MG TAB PO SCH ×2 (08:11→20:40)
[2020-03-30] MEDS: Potassium Chloride 10 MEQ TAB PO SCH (08:12)
[2020-03-30] MEDS: Lisinopril 10 MG TAB PO SCH (08:13)
[2020-03-30] MEDS: Aspirin Chewable 81 MG TAB PO SCH (08:13)
[2020-03-30] MEDS: Furosemide 40 MG TAB PO SCH (08:13)
[2020-03-30] MEDS: predniSONE 5 MG TAB PO SCH (08:13)
[2020-03-30] MEDS ORDERED: Potassium Chloride 20 MEQ TAB PO SCH (08:15)
[2020-03-30] MEDS: HumaLOG 300 UNITS/3 ML VIAL SC PRN ×3 (11:41→21:14)
--- NOTE | 2020-03-30 12:28 | PDOC.HOSPP ---
- Subjective Encounter Date: 03/30/20 Encounter Time: 12:26 Subjective: Patient seen and examined this morning. He was sitting up in a chair eating lunch when I visited. His was at the bedside as well. He is being treated for acute pulmonary embolus. He is tolerating his Eliquis very well. Cardiology evaluation is ongoing. - Objective Vital Signs & Weight: Vital Signs (12 hours) Temp Pulse Pulse Pulse Resp BP BP 03/30/20 09:04 93 93 134/82 03/30/20 08:13 133/86 03/30/20 08:00 98.3 F 80 18 03/30/20 07:22 80 20 03/30/20 03:25 97.5 F L 81 23 H 03/30/20 00:43 79 16 BP BP Pulse Ox Pulse Ox Pulse Ox 03/30/20 09:04 135/76 93 L 93 L 03/30/20 08:13 03/30/20 08:00 133/86 96 03/30/20 07:22 03/30/20 03:25 123/80 99 03/30/20 00:43 99 Weight Weight 67 lb 6.4 oz I&O: 03/29/20 03/30/20 03/31/20 06:59 06:59 06:59 Intake Total 1230 1280 Output Total 650 1150 Balance 580 130 Result Diagrams: 03/30/20 04:18 03/30/20 04:18 Additional Labs: Accuchecks 03/30/20 03/30/20 03/29/20 10:29 05:40 19:41 POC Glucose 284 H 126 H 390 H Radiology Reviewed by me: Yes EKG Reviewed by me: Yes Hospitalist ROS - Review of Systems Constitutional: reports: weakness Respiratory: reports: shortness of breath Gastrointestinal: reports: nausea - Medication Medications: Active Medications Generic Name Dose Route Start Last Admin Trade Name Freq PRN Reason Stop Dose Admin Albuterol/Ipratropium 3 ml 03/28/20 19:00 03/30/20 07:22 Ipratropium/Albuterol Sulfate 3 Ml Neb NEB 3 ml [id number] PREM Administration Apixaban 10 mg 03/29/20 21:00 03/30/20 08:11 Apixaban 5 Mg Tab PO 10 mg BID PREM Administration Aspirin 81 mg 03/28/20 09:00 03/30/20 08:13 Aspirin Chewable 81 Mg Tab PO 81 mg DAILY PREM Administration Atorvastatin Calcium 20 mg 03/28/20 21:00 03/29/20 20:38 Atorvastatin Calcium 20 Mg Tab PO 20 mg HS PREM Administration Finasteride 5 mg 03/29/20 09:00 03/30/20 08:11 Finasteride 5 Mg Tab PO 5 mg DAILY PREM Administration Furosemide 40 mg 03/28/20 09:00 03/30/20 08:13 Furosemide 40 Mg Tab PO 40 mg DAILY PREM Administration Ceftriaxone Sodium 2 gm/ 100 mls @ 200 mls/hr 03/28/20 18:00 03/29/20 18:16 Sodium Chloride IVPB 100 mls 1800 PREM Administration Azithromycin 500 mg/ Sodium 250 mls @ 250 mls/hr 03/28/20 20:00 03/29/20 20:33 Chloride IVPB 250 mls 2000 PREM Administration Insulin Human Lispro 0 units 03/27/20 19:30 03/30/20 11:41 Humalog 300 Units/3 Ml Vial SC 6 unit .MODERATE SLIDING SC PRN Administration Moderate Correctional Scale Insulin Human Lispro 0 units 03/27/20 19:30 03/29/20 20:39 Humalog 300 Units/3 Ml Vial SC 5 unit .BEDTIME SLIDING SC PRN Administration Bedtime Correctional Scale Lisinopril 10 mg 03/28/20 09:00 03/30/20 08:13 Lisinopril 10 Mg Tab PO 10 mg DAILY PREM Administration Mometasone Furoate 100 mcg 03/28/20 18:30 03/30/20 07:25 Mometasone 100 Mcg/Puff (1 Inhaler) INH 2 puff BID-RT PREM Administration Pantoprazole Sodium 40 mg 03/28/20 09:00 03/30/20 08:13 Pantoprazole 40 Mg Tab PO 40 mg DAILY PREM Administration Pantoprazole Sodium 40 mg 03/29/20 21:00 03/29/20 23:28 Pantoprazole 40 Mg Tab PO 40 mg HS PREM Administration Potassium Chloride 5 meq 03/30/20 08:00 03/30/20 08:12 Potassium Chloride 10 Meq Tab PO 5 meq QAM-WM PREM Administration Prednisone 5 mg 03/29/20 09:00 03/30/20 08:13 Prednisone 5 Mg Tab PO 5 mg DAILY PREM Administration Psyllium Hydrophilic Mucilloid 1 pk 03/29/20 21:00 03/29/20 20:39 Metamucil Pack PO 1 pk QPM PREM Administration Sodium Chloride 10 ml 03/27/20 19:13 03/29/20 18:16 Flush - Normal Saline 10 Ml Syringe IVF 10 ml PRN PRN Administration Saline Flush - Exam General Appearance: NAD, awake alert Eye: PERRL, anicteric sclera ENT: normocephalic atraumatic, no oropharyngeal lesions Neck: supple, symmetric, no JVD, no thyromegaly Heart: RRR, no murmur, no gallops Respiratory: CTAB, no wheezes, no rales, no ronchi, normal chest expansion, no tachypnea Gastrointestinal: soft, non-tender, non-distended, normal bowel sounds Neurological: cranial nerve grossly intact Musculoskeletal: normal tone Psychiatric: normal affect, normal behavior, A&O x 3, oriented to time Hosp A/P (1) Bilateral pulmonary embolism Code(s): I26.99 - OTHER PULMONARY EMBOLISM WITHOUT ACUTE COR PULMONALE Status: Acute (2) CKD (chronic kidney disease) stage 3, GFR 30-59 ml/min Code(s): N18.30 - CHRONIC KIDNEY DISEASE, STAGE 3 UNSPECIFIED Status: Chronic (3) Chronic respiratory failure with hypoxia Code(s): J96.11 - CHRONIC RESPIRATORY FAILURE WITH HYPOXIA Status: Chronic (4) Generalized weakness Code(s): R53.1 - WEAKNESS Status: Chronic - Plan old records reviewed/req, plan discussed w/ family, PT/OT, out of bed/ambulate 03/30/2020. Mr. Pendleton is an 84-year-old admitted with acute bilateral pulmonary embolus. He is tolerating anticoagulation. He was on Lovenox perhaps and switched it to oral Eliquis. Hemodynamically he seems to be doing okay. We will continue present management. Cardiology was asked to evaluate as the patient does have extensive cardiac history. He is pending parimutuel cashier evaluation.
[2020-03-30] MEDS: cefTRIAXone\\ROCEPHIN 2 GM in Sodium Chloride 0.9% 100 ML IVPB SCH (17:10)
--- NOTE | 2020-03-30 19:24 | CON ---
DATE OF CONSULTATION: 03/30/2020 REASON FOR CONSULTATION: History of diastolic heart failure, pulmonary emboli. HISTORY OF PRESENT ILLNESS: Mr. Pendleton is a very pleasant 84-year-old man. He was admitted to the hospital with increasing trouble breathing. He was found to have pulmonary emboli. He also carries a diagnosis of diastolic heart failure. He is not having any chest pain or pressure. He has longstanding difficulty breathing due to COPD. The patient also has a previous pacemaker insertion. The patient is resting comfortably now. No complaints. MEDICATIONS: Prior to admission; 1. Prednisone. 2. Pantoprazole. 3. Lisinopril. REVIEW OF SYSTEMS: CONSTITUTIONAL: No significant weight gain or loss. VISION: No changes. HEARING: No changes. PULMONARY: No cough or wheezing. CARDIAC: No chest pain. GASTROINTESTINAL: No nausea, vomiting, or diarrhea. SKIN: No rashes. The patient has undergone evaluation here, which reveals that he has had pulmonary embolism. Thereafter, defect seen in distal left main pulmonary artery extending into the segmental left lower lobe pulmonary arteries. Also prominent filling defect in the right main pulmonary artery. Chest x-ray shows that he has a pacemaker in place. Echocardiogram done recently shows ejection fraction of 55% to 60% EKG reveals atrial fibrillation, controlled rate with intermittent ventricular pacing. The recent echocardiogram does not mention atrial fibrillation. CONCLUSION: 1. History of diastolic heart failure with normal left ventricular ejection fraction. 2. Pulmonary embolism. 3. Atrial fibrillation, which appears to be paroxysmal. 4. Chronic obstructive pulmonary disease. 5. Previous pacemaker. PLAN: 1. Agree with apixaban 10 mg twice a day for 7 days, then 5 mg twice a day. 2. No other recommendations at this time. Job ID: [id number] MTDD
[2020-03-30] MEDS: Atorvastatin Calcium 20 MG TAB PO SCH (20:40)
[2020-03-30] MEDS: Metamucil PACK PO SCH (20:40)
[2020-03-30] MEDS: Azithromycin 500 MG in Sodium Chloride 0.9% 250 ML 250 ML IVPB SCH (21:14)
[2020-03-31] MEDS: Mometasone 100 MCG/PUFF (1 INHALER) INH SCH ×2 (07:29→19:05)
[2020-03-31] MEDS: predniSONE 5 MG TAB PO SCH (08:03)
[2020-03-31] MEDS: Aspirin Chewable 81 MG TAB PO SCH (08:03)
[2020-03-31] MEDS: Lisinopril 10 MG TAB PO SCH (08:03)
[2020-03-31] MEDS: Apixaban 5 MG TAB PO SCH ×2 (08:03→21:28)
[2020-03-31] MEDS: Furosemide 40 MG TAB PO SCH (08:04)
[2020-03-31] MEDS: Potassium Chloride 10 MEQ TAB PO SCH (08:04)
[2020-03-31] MEDS: Finasteride 5 MG TAB PO SCH (08:04)
[2020-03-31] MEDS: HumaLOG 300 UNITS/3 ML VIAL SC PRN ×2 (11:14→16:59)
--- NOTE | 2020-03-31 11:30 | PRG ---
DATE OF SERVICE: 03/31/2020 OBJECTIVE: VITAL SIGNS: Temperature 98, pulse 90, blood pressure 163/86, saturations are 95% on 2 L, respiratory rate 20. GENERAL: He is awake, responsive. He is weak. LUNGS: No shortness of breath. No coughing. No wheezing. No chest pain. IMPRESSION: 1. His right hilar shadow showed no mass. He has a small nodule in the middle lobe, unknown significance, but he had bilateral pulmonary emboli. 2. Diastolic dysfunction, atrial fibrillation. PLAN: He is going to need 6 months of anticoagulation. I am going to discontinue all antibiotics. He is going to need physical therapy at home. He can probably be discharged to home anytime. Follow up in the office in about a month or so. Job ID: [id number]
--- NOTE | 2020-03-31 13:28 | PRG ---
DATE OF SERVICE: 03/31/2020 SUBJECTIVE: Mr. Pendleton states he still feels short of breath with exertion. No chest pain or pressure. OBJECTIVE: VITAL SIGNS: His blood pressure 127/76, pulse 72 and it is irregular. LUNGS: Clear. CARDIAC: Irregular. ABDOMEN: Soft, nontender. Reviewing the records, he had a recent echocardiogram, showing normal left ventricular function. Had CT angiogram showing pulmonary emboli as mentioned. He also has COPD. ASSESSMENT: 1. Shortness of breath, probably combination of chronic obstructive pulmonary disease, diastolic heart failure, and pulmonary emboli. 2. He is in atrial fibrillation that may be a new finding, was not mentioned on the recent echocardiogram. PLAN: 1. Continue Eliquis, he is on the dose for pulmonary emboli 10 mg twice a day for 7 days, then 5 mg twice a day, rate controlled. 2. He is on daily furosemide for diastolic heart failure. We will sign off at this point. He appears stable from a cardiac standpoint. He should follow up with his primary staffing manager after discharge. Job ID: [id number]
--- NOTE | 2020-03-31 13:42 | PDOC.HOSPP ---
- Subjective Encounter Date: 03/31/20 Encounter Time: 13:41 Subjective: Mr. Pendleton was seen and evaluated today at the bedside. He seems to be doing really well. He is tolerating his anticoagulation well. He said that he wants to go to a rehab place on discharge. I have requested case management to help with getting him approved. - Objective Vital Signs & Weight: Vital Signs (12 hours) Temp Pulse Pulse Pulse Resp BP BP 03/31/20 13:02 114 H 20 03/31/20 11:12 98.4 F 72 20 03/31/20 10:35 87 88 141/98 H 03/31/20 08:05 98.1 F 90 20 03/31/20 08:03 163/86 H 03/31/20 07:27 92 18 03/31/20 04:00 97.5 F L 81 20 BP BP BP BP Pulse Ox 03/31/20 13:02 03/31/20 11:12 127/76 95 03/31/20 10:35 121/81 03/31/20 08:05 163/86 H 94 L 03/31/20 08:03 03/31/20 07:27 03/31/20 04:00 138/81 96 Weight Weight 149 lb 4.047 oz I&O: 03/30/20 03/31/20 04/01/20 06:59 06:59 06:59 Intake Total 1280 1560 Output Total 1150 1175 Balance 130 385 Result Diagrams: 03/30/20 04:18 03/30/20 04:18 Additional Labs: Accuchecks 03/31/20 03/31/20 03/30/20 10:26 06:17 20:33 POC Glucose 253 H 110 H 264 H 03/30/20 03/29/20 16:43 16:58 POC Glucose 242 H 381 H Radiology Reviewed by me: Yes EKG Reviewed by me: Yes Hospitalist ROS - Review of Systems Constitutional: reports: weakness, malaise Respiratory: reports: shortness of breath, SOB with excertion Neurological: reports: weakness - Medication Medications: Active Medications Generic Name Dose Route Start Last Admin Trade Name Freq PRN Reason Stop Dose Admin Albuterol/Ipratropium 3 ml 03/28/20 19:00 03/31/20 13:02 Ipratropium/Albuterol Sulfate 3 Ml Neb NEB 3 ml [id number] PREM Administration Apixaban 10 mg 03/29/20 21:00 03/31/20 08:03 Apixaban 5 Mg Tab PO 10 mg BID PREM Administration Aspirin 81 mg 03/28/20 09:00 03/31/20 08:03 Aspirin Chewable 81 Mg Tab PO 81 mg DAILY PREM Administration Atorvastatin Calcium 20 mg 03/28/20 21:00 03/30/20 20:40 Atorvastatin Calcium 20 Mg Tab PO 20 mg HS PREM Administration Finasteride 5 mg 03/29/20 09:00 03/31/20 08:04 Finasteride 5 Mg Tab PO 5 mg DAILY PREM Administration Furosemide 40 mg 03/28/20 09:00 03/31/20 08:04 Furosemide 40 Mg Tab PO 40 mg DAILY PREM Administration Insulin Human Lispro 0 units 03/27/20 19:30 03/31/20 11:14 Humalog 300 Units/3 Ml Vial SC 6 unit .MODERATE SLIDING SC PRN Administration Moderate Correctional Scale Insulin Human Lispro 0 units 03/27/20 19:30 03/30/20 21:14 Humalog 300 Units/3 Ml Vial SC 3 unit .BEDTIME SLIDING SC PRN Administration Bedtime Correctional Scale Lisinopril 10 mg 03/28/20 09:00 03/31/20 08:03 Lisinopril 10 Mg Tab PO 10 mg DAILY PREM Administration Mometasone Furoate 100 mcg 03/28/20 18:30 03/31/20 07:29 Mometasone 100 Mcg/Puff (1 Inhaler) INH 2 puff BID-RT PREM Administration Pantoprazole Sodium 40 mg 03/29/20 21:00 03/30/20 20:41 Pantoprazole 40 Mg Tab PO 40 mg HS PREM Administration Potassium Chloride 5 meq 03/30/20 08:00 03/31/20 08:04 Potassium Chloride 10 Meq Tab PO 5 meq QAM-WM PREM Administration Prednisone 5 mg 03/29/20 09:00 03/31/20 08:03 Prednisone 5 Mg Tab PO 5 mg DAILY PREM Administration Psyllium Hydrophilic Mucilloid 1 pk 03/29/20 21:00 03/30/20 20:40 Metamucil Pack PO 1 pk QPM PREM Administration Sodium Chloride 10 ml 03/27/20 19:13 03/30/20 17:10 Flush - Normal Saline 10 Ml Syringe IVF 10 ml PRN PRN Administration Saline Flush - Exam General Appearance: NAD, awake alert Eye: PERRL, anicteric sclera ENT: normocephalic atraumatic, no oropharyngeal lesions Neck: supple, symmetric, no JVD, no thyromegaly, no lymphadenopathy Heart: RRR, no murmur, no gallops, no rubs, normal peripheral pulses Respiratory: CTAB, no wheezes, no rales, no ronchi, normal chest expansion Gastrointestinal: soft, non-tender, non-distended, normal bowel sounds, no palpable masses Neurological: cranial nerve grossly intact Psychiatric: normal affect, normal behavior, A&O x 3, oriented to person Hosp A/P (1) Bilateral pulmonary embolism Code(s): I26.99 - OTHER PULMONARY EMBOLISM WITHOUT ACUTE COR PULMONALE Status: Acute (2) CKD (chronic kidney disease) stage 3, GFR 30-59 ml/min Code(s): N18.30 - CHRONIC KIDNEY DISEASE, STAGE 3 UNSPECIFIED Status: Chronic (3) Chronic respiratory failure with hypoxia Code(s): J96.11 - CHRONIC RESPIRATORY FAILURE WITH HYPOXIA Status: Chronic (4) Generalized weakness Code(s): R53.1 - WEAKNESS Status: Chronic - Plan PT/OT 03/30/2020. Mr. Pendleton is an 84-year-old admitted with acute bilateral pulmonary embolus. He is tolerating anticoagulation. He was on Lovenox perhaps and switched it to oral Eliquis. Hemodynamically he seems to be doing okay. We will continue present management. Cardiology was asked to evaluate as the patient does have extensive cardiac history. He is pending ramp boss evaluation. 03/31/2020. He continues to tolerate Eliquis for pulmonary embolism. He is able to get around easier without significant shortness of breath. We will plan to discharge him to rehab whenever he is accepted. He is going to r emain on Eliquis at least for the next 6 months.
[2020-03-31] MEDS ORDERED: Sodium Chloride 0.65% Nasal 44 ML BOT EA NARE PRN (15:22)
[2020-03-31] MEDS: Atorvastatin Calcium 20 MG TAB PO SCH (21:28)
[2020-03-31] MEDS: Metamucil PACK PO SCH (22:43)
[2020-04-01 04:31] LABS: Hemoglobin 11.3 g/dL (14.0-18.0); Platelet Count 250 thou/uL (130-400)
[2020-04-01] MEDS: Potassium Chloride 10 MEQ TAB PO SCH (07:46)
[2020-04-01] MEDS: predniSONE 5 MG TAB PO SCH (07:47)
[2020-04-01] MEDS: Apixaban 5 MG TAB PO SCH ×2 (07:47→20:50)
[2020-04-01] MEDS: Furosemide 40 MG TAB PO SCH (07:47)
[2020-04-01] MEDS: Lisinopril 10 MG TAB PO SCH (07:47)
[2020-04-01] MEDS: Aspirin Chewable 81 MG TAB PO SCH (07:47)
[2020-04-01] MEDS: Finasteride 5 MG TAB PO SCH (07:47)
[2020-04-01] MEDS: Mometasone 100 MCG/PUFF (1 INHALER) INH SCH ×2 (08:25→18:58)
--- NOTE | 2020-04-01 10:39 | PRG ---
DATE OF SERVICE: 04/01/2020 SUBJECTIVE: Felix Pendleton is doing better. He is less tachypneic, less tachycardic. His sats are much improved. OBJECTIVE: VITAL SIGNS: Temperature 97, pulse 80, respiratory rate 16, blood pressure 120/85, sats are 92% on 2 L. His I's and O's have been consistently negative. CHEST: No wheezing. No crackles. CARDIAC: Normal S1, S2. No gallops. IMPRESSION: Respiratory failure, bilateral pulmonary emboli, atrial fibrillation, diastolic dysfunction. Please note, he is ready to be discharged home anytime. I have asked him to see us in the office in three months. We will assess his pulmonary status at that time with PFT at that time. Clearly, no antibiotic is required at this stage. H and H are stable. Job ID: [id number]
[2020-04-01] MEDS: HumaLOG 300 UNITS/3 ML VIAL SC PRN ×2 (11:08→17:19)
--- NOTE | 2020-04-01 14:06 | PDOC.HOSPP ---
- Subjective Encounter Date: 04/01/20 Encounter Time: 14:04 Subjective: Mr. Pendleton is doing really well. His was not at the bedside today when I visited. He is tolerating his Eliquis well. We will plan to hopefully send him to a rehab at his wish hopefully over the next 24 hours. - Objective Vital Signs & Weight: Vital Signs (12 hours) Temp Pulse Pulse Pulse Resp BP BP 04/01/20 11:31 85 80 136/82 105/70 04/01/20 11:10 97.9 F 82 16 04/01/20 08:27 04/01/20 08:26 90 24 H 04/01/20 07:00 97.7 F 81 16 04/01/20 04:00 97.8 F 80 12 BP BP Pulse Ox 04/01/20 11:31 04/01/20 11:10 100/64 95 04/01/20 08:27 92 L 04/01/20 08:26 92 L 04/01/20 07:00 121/85 97 04/01/20 04:00 110/69 93 L Weight Weight 145 lb 15.136 oz I&O: 03/31/20 04/01/20 04/02/20 06:59 06:59 06:59 Intake Total 1560 300 Output Total 1175 Balance 385 300 Result Diagrams: 04/01/20 04:01 03/30/20 04:18 Additional Labs: Accuchecks 04/01/20 04/01/20 03/31/20 10:41 05:56 22:42 POC Glucose 270 H 127 H 163 H 03/31/20 16:44 POC Glucose 211 H Radiology Reviewed by me: Yes EKG Reviewed by me: Yes Hospitalist ROS - Review of Systems ROS unobtainable: due to mental status Constitutional: reports: weakness, malaise Respiratory: reports: shortness of breath, SOB with excertion Neurological: reports: weakness - Medication Medications: Active Medications Generic Name Dose Route Start Last Admin Trade Name Freq PRN Reason Stop Dose Admin Albuterol/Ipratropium 3 ml 03/28/20 19:00 04/01/20 08:26 Ipratropium/Albuterol Sulfate 3 Ml Neb NEB 3 ml [id number] PREM Administration Apixaban 10 mg 03/29/20 21:00 04/01/20 07:47 Apixaban 5 Mg Tab PO 10 mg BID PREM Administration Aspirin 81 mg 03/28/20 09:00 04/01/20 07:47 Aspirin Chewable 81 Mg Tab PO 81 mg DAILY PREM Administration Atorvastatin Calcium 20 mg 03/28/20 21:00 03/31/20 21:28 Atorvastatin Calcium 20 Mg Tab PO 20 mg HS PREM Administration Finasteride 5 mg 03/29/20 09:00 04/01/20 07:47 Finasteride 5 Mg Tab PO 5 mg DAILY PREM Administration Furosemide 40 mg 03/28/20 09:00 04/01/20 07:47 Furosemide 40 Mg Tab PO 40 mg DAILY PREM Administration Insulin Human Lispro 0 units 03/27/20 19:30 04/01/20 11:08 Humalog 300 Units/3 Ml Vial SC 6 unit .MODERATE SLIDING SC PRN Administration Moderate Correctional Scale Insulin Human Lispro 0 units 03/27/20 19:30 03/30/20 21:14 Humalog 300 Units/3 Ml Vial SC 3 unit .BEDTIME SLIDING SC PRN Administration Bedtime Correctional Scale Lisinopril 10 mg 03/28/20 09:00 04/01/20 07:47 Lisinopril 10 Mg Tab PO 10 mg DAILY PREM Administration Mometasone Furoate 100 mcg 03/28/20 18:30 04/01/20 08:25 Mometasone 100 Mcg/Puff (1 Inhaler) INH 2 puff BID-RT PREM Administration Pantoprazole Sodium 40 mg 03/29/20 21:00 03/31/20 21:28 Pantoprazole 40 Mg Tab PO 40 mg HS PREM Administration Potassium Chloride 5 meq 03/30/20 08:00 04/01/20 07:46 Potassium Chloride 10 Meq Tab PO 5 meq QAM-WM PREM Administration Prednisone 5 mg 03/29/20 09:00 04/01/20 07:47 Prednisone 5 Mg Tab PO 5 mg DAILY PREM Administration Psyllium Hydrophilic Mucilloid 1 pk 03/29/20 21:00 03/31/20 22:43 Metamucil Pack PO 1 pk QPM PREM Administration Sodium Chloride 10 ml 03/27/20 19:13 03/30/20 17:10 Flush - Normal Saline 10 Ml Syringe IVF 10 ml PRN PRN Administration Saline Flush Sodium Chloride 0 ml 03/31/20 15:22 03/31/20 15:31 Sodium Chloride 0.65% Nasal 44 Ml Bot EA NARE 2 sprays BIDPRN PRN Administration NOSE BLEEDS - Exam General Appearance: awake alert Eye: PERRL, anicteric sclera ENT: normocephalic atraumatic, no oropharyngeal lesions Neck: supple, symmetric, no JVD Heart: RRR, no murmur, no gallops, no rubs, normal peripheral pulses Respiratory: CTAB, no wheezes, no rales, no ronchi Gastrointestinal: soft, non-tender, non-distended, normal bowel sounds Neurological: cranial nerve grossly intact, normal sensation to touch Psychiatric: normal affect, normal behavior, A&O x 3 Hosp A/P (1) Bilateral pulmonary embolism Code(s): I26.99 - OTHER PULMONARY EMBOLISM WITHOUT ACUTE COR PULMONALE Status: Acute (2) CKD (chronic kidney disease) stage 3, GFR 30-59 ml/min Code(s): N18.30 - CHRONIC KIDNEY DISEASE, STAGE 3 UNSPECIFIED Status: Chronic (3) Chronic respiratory failure with hypoxia Code(s): J96.11 - CHRONIC RESPIRATORY FAILURE WITH HYPOXIA Status: Chronic (4) Generalized weakness Code(s): R53.1 - WEAKNESS Status: Chronic - Plan 03/30/2020. Mr. Pendleton is an 84-year-old admitted with acute bilateral pulmonary embolus. He is tolerating anticoagulation. He was on Lovenox perhaps and switched it to oral Eliquis. Hemodynamically he seems to be doing okay. We will continue present management. Cardiology was asked to evaluate as the patient does have extensive cardiac history. He is pending linen sorter evaluation. 03/31/2020. He continues to tolerate Eliquis for pulmonary embolism. He is able to get around easier without significant shortness of breath. We will plan to discharge him to rehab whenever he is accepted. He is going to remain on Eliquis at least for the next 6 months. 04/01/2020. Continue Eliquis. I will switch you to 5 mg twice daily starting tomorrow.
[2020-04-01 15:26] LABS: Hemoglobin 12.4 g/dL (14.0-18.0); Platelet Count 262 thou/uL (130-400)
[2020-04-01] MEDS: Metamucil PACK PO SCH (20:51)
[2020-04-01] MEDS: Atorvastatin Calcium 20 MG TAB PO SCH (20:51)
[2020-04-02] MEDS: Mometasone 100 MCG/PUFF (1 INHALER) INH SCH ×2 (07:09→19:22)
[2020-04-02] MEDS: Furosemide 40 MG TAB PO SCH (08:11)
[2020-04-02] MEDS: predniSONE 5 MG TAB PO SCH (08:11)
[2020-04-02] MEDS: Finasteride 5 MG TAB PO SCH (08:11)
[2020-04-02] MEDS: Apixaban 5 MG TAB PO SCH ×2 (08:11→21:21)
[2020-04-02] MEDS: Potassium Chloride 10 MEQ TAB PO SCH (08:11)
[2020-04-02] MEDS: Aspirin Chewable 81 MG TAB PO SCH (08:11)
[2020-04-02] MEDS: Lisinopril 10 MG TAB PO SCH (08:11)
[2020-04-02] MEDS: HumaLOG 300 UNITS/3 ML VIAL SC PRN ×2 (11:09→16:57)
--- NOTE | 2020-04-02 11:48 | PDOC.DS.DS ---
Provider - Provider Date of Admission: 03/28/20 15:22 Date of Discharge: 04/02/20 Admitting Provider: River Queen MD Consultations: Cardiology, Pulmonary Primary Care Physician: ISABEL FIELD MD Course - Hospital Course Hospital Course: Mr. Pendleton is an 84-year-old patient who was admitted to the hospital with worsening shortness of breath and decreasing exercise tolerance. He ultimately was noted to have bilateral pulmonary embolus. He was hospitalized for anticoagulation. It is felt that the etiology of his venous thromboembolism was decrease in activity. He was seen briefly by automatic gluing machine operator here at the family's request. Cardiology agreed with anticoagulation. He did well and has remained clinically stable. He has an ongoing need for physical therapy and the family elected for him to go to rehab prior to discharge home. He can transfer to rehab once he is approved and the bed is available. He will likely need at [facility] 6 months of anticoagulation with Eliquis. Resuscitation Status: 03/27/20 19:33 Resuscitation Status Routine Co-Sign Provider: Resuscitation Status: FULL: Full Resuscitation Discussed with: patient - Labs Lab Results: 04/01/20 15:08 04/01/20 15:08 Abnormal Lab Results - Last 48 hrs 04/01/20 04:01: Hgb 11.3 L, Hct 35.1 L 04/01/20 15:08: Hgb 12.4 L, Hct 39.0 L - Physical Exam Vitals: Vital Signs (12 hours) Temp Pulse Resp BP Pulse Ox 04/02/20 11:07 97.9 F 84 20 103/64 96 04/02/20 07:50 97.7 F 82 18 129/87 95 04/02/20 07:12 97 04/02/20 07:10 79 16 97 04/02/20 00:52 82 16 98 Weight Weight 145 lb 8.081 oz Physical Exam: The patient was seen and examined on the day of discharge. Problem - Problem (1) Bilateral pulmonary embolism Code(s): I26.99 - OTHER PULMONARY EMBOLISM WITHOUT ACUTE COR PULMONALE Status: Acute (2) CKD (chronic kidney disease) stage 3, GFR 30-59 ml/min Code(s): N18.30 - CHRONIC KIDNEY DISEASE, STAGE 3 UNSPECIFIED Status: Chronic (3) Chronic respiratory failure with hypoxia Code(s): J96.11 - CHRONIC RESPIRATORY FAILURE WITH HYPOXIA Status: Chronic (4) Generalized weakness Code(s): R53.1 - WEAKNESS Status: Chronic - Time spent with Patient (mins): 30 Plan - Discharge Medications Prescriptions: Apixaban [Eliquis] 5 mg PO BID #60 tab Home Medications: Medication Instructions Recorded Confirmed Type Alendronate Sodium [Fosamax] 70 mg PO Q7D 03/28/20 03/28/20 History Calcium Carbonate/Vitamin D3 1 tab PO BID 03/28/20 03/28/20 History [Calcium 500 mg-Vit D3 5 Mcg Tb] Finasteride 5 mg PO DAILY 03/28/20 03/28/20 History Fluticasone/Umeclidin/Vilanter 1 puff IH QAM 03/28/20 03/28/20 History [Trelegy Ellipta 100-62.5-25] Furosemide [Lasix] 40 mg PO DAILY 03/28/20 03/28/20 History Lisinopril [Zestril] 10 mg PO DAILY 03/28/20 03/28/20 History Magnesium Oxide [Magnesium] 1 tab PO DAILY 03/28/20 03/28/20 History Pantoprazole [Protonix] 40 mg PO HS 03/28/20 03/28/20 History Potassium Gluconate 90 mg PO QAM 03/28/20 03/28/20 History Psyllium Husk [Metamucil] 1 teaspoon PO QPM 03/28/20 03/28/20 History Simvastatin [Zocor] 40 mg PO HS 03/28/20 03/28/20 History predniSONE [Prednisone] 5 mg PO DAILY 03/28/20 03/28/20 History Apixaban [Eliquis] 5 mg PO BID #60 tab 04/02/20 Rx Furosemide [Lasix] 40 mg PO DAILY tab 04/02/20 Rx Lisinopril [Zestril] 10 mg PO DAILY tab 04/02/20 Rx Allergies: No Known Allergies Allergy (Verified 03/28/20 06:16) - Discharge Instructions Activity:: Activity as Tolerated Nourishment:: Heart Healthy Diet Therapies:: Occupational Therapy, Physical Therapy Equipment/Supplies:: Not Applicable IV Therapy:: Not Applicable - Follow up Plan Referrals: ISABEL FIELD [Primary Care Provider] - Disposition: REHABILITATION INPATIENT Quality - Care Measures CORE MEASURES:: N/A
--- NOTE | 2020-04-02 13:13 | PRG ---
DATE OF SERVICE: 04/02/2020 SUBJECTIVE: Felix Pendleton remains in the hospital, who is doing well. OBJECTIVE: VITAL SIGNS: Temperature 97, pulse 86, respiratory rate 18, sats 95% on 2 L, blood pressure 129/87. CHEST: No wheezing. No crackles. CARDIAC: Normal S1 and S2. ABDOMEN: No masses. ASSESSMENT: Respiratory failure, bilateral pulmonary emboli, diastolic dysfunction, small right middle lobe nodule of unknown significance, no hilar mass. Blood gas showing a pO2 of 73, pCO2 of 26.4, pH of 7.56, shows significant respiratory acidosis, probably secondary to pulmonary emboli. Pulmonary davalos, home any time. Follow up with his primary care physician. He should see Dr. Mendieta in 3 months, 6 months of anticoagulation. Job ID: [id number]
[2020-04-02] MEDS: Metamucil PACK PO SCH (21:21)
[2020-04-02] MEDS: Atorvastatin Calcium 20 MG TAB PO SCH (21:21)
[2020-04-03] MEDS: Mometasone 100 MCG/PUFF (1 INHALER) INH SCH (07:13)
[2020-04-03] MEDS: Lisinopril 10 MG TAB PO SCH (08:02)
[2020-04-03] MEDS: Aspirin Chewable 81 MG TAB PO SCH (08:02)
[2020-04-03] MEDS: predniSONE 5 MG TAB PO SCH (08:02)
[2020-04-03] MEDS: Apixaban 5 MG TAB PO SCH (08:02)
[2020-04-03] MEDS: Furosemide 40 MG TAB PO SCH (08:03)
[2020-04-03] MEDS: Finasteride 5 MG TAB PO SCH (08:03)
[2020-04-03] MEDS: Potassium Chloride 10 MEQ TAB PO SCH (08:03)
[2020-04-03 11:16] VITALS: BP 109/72; TEMP 97.4
[2020-04-03] MEDS: HumaLOG 300 UNITS/3 ML VIAL SC PRN (11:17)
--- NOTE | 2020-04-03 11:55 | PRG ---
DATE OF SERVICE: 04/03/2020 OBJECTIVE: VITAL SIGNS: Josr Pendleton' temperature 97, pulse , respiratory rate 18, saturation is 90% on 2 L, blood pressure 115/71. CHEST: No wheezing. No crackles. CARDIAC: Normal S1, S2. No gallops. ABDOMEN: No masses. IMPRESSION: Respiratory failure secondary to bilateral pulmonary emboli, diastolic dysfunction, probably chronic obstructive pulmonary disease. 6 months anticoagulation. He can see in the office in 3 months with a full PFT. He is to follow up closely with primary care physician and his brake reliner. Job ID: [id number]
--- NOTE | 2020-04-04 13:21 | PQF ---
CLINICAL DOCUMENTATION CLARIFICATION FORM: Dear Dr. Arredondo Date: 04/04/2020 Please exercise your independent, professional judgment in responding to the clarification form. Clinical indicators are provided on the bottom of this form for your review. Please check appropriate box(es): Conflicting documentation was noted in the Medical Record; please clarify if patient is being treated/monitored for: [ x ] Acute on chronic Respiratory failure [ ] Chronic respiratory failure with hypoxia [ ] Other diagnosis [ ] Unable to determine In addition, please specify: Present on Admission (POA): [x ] Yes [ ] No [ ] Unable to determine For continuity of documentation, please document condition throughout progress notes and discharge summary. Thank You. To be completed by CDI/Coding staff for physician review: CLINICAL INDICATORS - SIGNS / SYMPTOMS/ LABS / RESULTS AND LOCATION IN EMR *03/28 Consult (Jose) HPI: He was admitted yesterday with increasing shortness of breath, which is basically chronic in nature VS: resp. 20, O2 saturation 94% on 2 L LAB: PH 7.56, pCO2 of 25, pO2 of 73 on 2 L *03/31 pn (Vivek) A/P: Chronic respiratory failure with hypoxia *VS (EMR): 03/28 @ 1132 Resp 20, O2 sat 94 on 2L NC 03/29 @ 1425 O2 sat 92 on 4L NC *04/02 pn (Mendieta) Assessment: Respiratory failure, bilateral pulmonary emboli, diastolic dysfunction. Blood gas showing a pO2 of 73, pCO2 of 26.4, pH of 7.56, shows significant respiratory acidosis, probably 2/2 pulmonary embolism. 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 *03/28 Consult (Jose) Assessment: Pulmonary embolism TREATMENT / RESULTS AND LOCATION IN EMR *03/27 Order Resp: O2 to keep sats 90% prn *03/28 Order Duoneb q6 hr Thank you, Kaycee Sun RN, [email or web address] This is a permanent part of the Medical Record [facility]
== END 2020-04-03 14:01 | DRG 175 ==
LOC: ERS 15:36 → ERHOLD 18:44 → 2NO 03-28 05:13 → OBSVTOIN 03-28 15:22
PROVIDERS: ADMIT Internal Medicine; ATTEND Hospitalist
DX: I26.99 Other pulmonary embolism without acute cor pulmonale (principal); J96.21 Acute and chronic respiratory failure with hypoxia; I13.0 Hypertensive heart and chronic kidney disease with heart failure and stage 1 through stage 4 chronic kidney disease, or unspecified chronic kidney disease; J96.11 Chronic respiratory failure with hypoxia; I50.32 Chronic diastolic (congestive) heart failure; E87.2 Acidosis; Z20.822 Contact with and (suspected) exposure to COVID-19; E78.5 Hyperlipidemia, unspecified; K21.9 Gastro-esophageal reflux disease without esophagitis; M81.0 Age-related osteoporosis without current pathological fracture; J84.89 Other specified interstitial pulmonary diseases; E11.65 Type 2 diabetes mellitus with hyperglycemia; N40.0 Benign prostatic hyperplasia without lower urinary tract symptoms; D72.829 Elevated white blood cell count, unspecified; N18.30 Chronic kidney disease, stage 3 unspecified; R91.8 Other nonspecific abnormal finding of lung field; D63.1 Anemia in chronic kidney disease; I48.0 Paroxysmal atrial fibrillation; J44.9 Chronic obstructive pulmonary disease, unspecified; Z90.49 Acquired absence of other specified parts of digestive tract; Z95.0 Presence of cardiac pacemaker; Z99.81 Dependence on supplemental oxygen; Z86.11 Personal history of tuberculosis; Z87.891 Personal history of nicotine dependence; Z79.899 Other long term (current) drug therapy
CPT/HCPCS: 36415; 36416; 36600; 71045; 71260; 74019; 76705; 80048; 80053; 80061; 80074; 80076; 81003; 81015; 82553; 82565; 82805; 83036; 83605; 83690; 83735; 83880; 84443; 84484; 85014; 85018; 85025; 85049; 87635; 93005; 93798; 94640; 97139; G0378; J0456; J0696; J1650; J3490; J7050; J7512; J7620; Q9967; U0003; U0005

== ENCOUNTER 2021-01-06 09:54 | Outpatient (CLI) | payer MEDICARE, OTHER | END 2021-01-06 09:55 | disposition home or self-care (01) | LOC: BICCT 09:54 | PROVIDERS: ATTEND Internal Medicine Pulmonary Disease | DX: I26.99 Other pulmonary embolism without acute cor pulmonale (principal); I73.89 Other specified peripheral vascular diseases | CPT/HCPCS: 71250 ==

== ENCOUNTER 2021-02-17 12:29 | Inpatient (IN) | payer MEDICARE, OTHER ==
[2021-02-17] MEDS ORDERED: Acetaminophen 325 MG TAB PO PRN (21:41)
[2021-02-17] MEDS ORDERED: cefTRIAXone\\ROCEPHIN 2 GM in Sodium Chloride 0.9% 100 ML IVPB SCH (21:45)
[2021-02-17] MEDS ORDERED: Sodium Chloride 0.9% 1,000 ML IV SCH (21:45)
[2021-02-17] MEDS ORDERED: Dextrose 5% in Water 1,000 ML IV PRN (21:59)
[2021-02-17] MEDS ORDERED: Dextrose 50% Abboject 50 ML SYRINGE SLOW IVP PRN (21:59)
[2021-02-17] MEDS ORDERED: Alendronate Sodium 70 mg Tablet PO SCH (22:00)
[2021-02-17] MEDS ORDERED: Atorvastatin Calcium 20 MG TAB PO SCH (22:15)
[2021-02-17] MEDS ORDERED: Apixaban 2.5 MG TAB PO SCH (23:00)
[2021-02-18 04:50] LABS: #Eosinphils 0.1 thou/uL (0.0-0.7); #Lymphocytes 1.1 thou/uL (1.20-3.40); #Monocytes 0.7 thou/uL (0.11-0.59); #Neutrophils 6.8 thou/uL (1.40-6.50); %Basophils 0.4 % (0.0-1.0); %Eosinophils 1.2 % (0.0-10.0); %Lymphocytes 12.5 % (21.0-51.0); %Monocytes 8.2 % (0.0-10.0); %Neutrophils 77.8 % (42.0-75.0); Hemoglobin 11.4 g/dL (14.0-18.0); Mean Corpuscular HGB CONC 31.6 g/dL (32.0-36.0); Mean Corpuscular Hemoglobin 26.6 pg (27.0-31.0); Mean Corpuscular Volume 84.1 fL (78.0-98.0); Mean Platelet Volume 8.1 fL (7.4-10.4); Platelet Count 266 thou/uL (130-400); RBC Distribution Width 18.2 % (11.5-14.5); Red Blood Cell (RBC) Count 4.28 mill/uL (4.70-6.10); White Blood Cell (WBC) Count 8.7 thou/uL (4.8-10.8)
[2021-02-18 05:09] LABS: Anion Gap 12 mmol/L (10-20); BUN (Urea Nitrogen) 46 mg/dL (8.4-25.7); Calc. Creatinine Clearance 26 mL/min (70-130); Carbon Dioxide 22 mmol/L (23-31); Chloride 108 mmol/L (98-107); Glucose 85 mg/dL (83-110); Potassium 4.5 mmol/L (3.5-5.1); Sodium 137 mmol/L (136-145)
[2021-02-18 05:29] LABS: T4 5.1 ug/dL (4.87-11.72)
[2021-02-18] MEDS: Aspirin Chewable 81 MG TAB PO SCH (08:53)
[2021-02-18] MEDS: Calcium Carbonate 600 MG + Vit D TAB PO SCH (08:53)
[2021-02-18] MEDS: Dronedarone HCl 400 MG TAB PO SCH ×2 (08:53→21:12)
[2021-02-18] MEDS: Potassium Chloride 20 MEQ TAB PO SCH (08:53)
[2021-02-18] MEDS: Apixaban 2.5 MG TAB PO SCH ×2 (08:54→21:11)
[2021-02-18] MEDS ORDERED: Furosemide 40 MG TAB PO SCH (09:00)
[2021-02-18] MEDS: Sodium Chloride 0.9% 1,000 ML IV SCH (11:50)
[2021-02-18] MEDS: cefTRIAXone\\ROCEPHIN 1 GM in Sodium Chloride 0.9% 100 ML IVPB SCH (17:49)
[2021-02-18] MEDS: Nystatin Cream 30 GM TUBE TOP SCH (21:12)
[2021-02-18] MEDS: Metamucil PACK PO SCH (21:12)
[2021-02-18] MEDS: Atorvastatin Calcium 20 MG TAB PO SCH (21:12)
[2021-02-19] MEDS: Sodium Chloride 0.9% 1,000 ML IV SCH ×2 (00:15→14:13)
[2021-02-19 04:43] LABS: #Eosinphils 0.1 thou/uL (0.0-0.7); #Lymphocytes 0.9 thou/uL (1.20-3.40); #Monocytes 0.7 thou/uL (0.11-0.59); #Neutrophils 6.3 thou/uL (1.40-6.50); %Basophils 0.4 % (0.0-1.0); %Eosinophils 1.4 % (0.0-10.0); %Monocytes 8.1 % (0.0-10.0); %Neutrophils 79.1 % (42.0-75.0); Mean Corpuscular HGB CONC 31.3 g/dL (32.0-36.0); Mean Corpuscular Hemoglobin 26.4 pg (27.0-31.0); Mean Corpuscular Volume 84.4 fL (78.0-98.0); Mean Platelet Volume 7.9 fL (7.4-10.4); Platelet Count 236 thou/uL (130-400); RBC Distribution Width 17.9 % (11.5-14.5)
[2021-02-19 05:08] LABS: Anion Gap 12 mmol/L (10-20); BUN (Urea Nitrogen) 31 mg/dL (8.4-25.7); Calc. Creatinine Clearance 35 mL/min (70-130); Calcium 7.8 mg/dL (7.8-10.44); Carbon Dioxide 20 mmol/L (23-31); Chloride 112 mmol/L (98-107); Glucose 100 mg/dL (83-110); Potassium 3.3 mmol/L (3.5-5.1); Sodium 141 mmol/L (136-145)
[2021-02-19] MEDS ORDERED: Ferrous Sulfate 325 MG TAB PO SCH (09:00)
[2021-02-19] MEDS ORDERED: FLU VACC QS2021-22(65YR UP)/PF 240 MCG/0.7 ML SYRINGE IM ONE (09:00)
[2021-02-19] MEDS: Potassium Chloride 20 MEQ TAB PO SCH (09:56)
[2021-02-19] MEDS: Ferrous Sulfate 325 MG TAB PO SCH (09:57)
[2021-02-19] MEDS: Calcium Carbonate 600 MG + Vit D TAB PO SCH (09:57)
[2021-02-19] MEDS: Aspirin Chewable 81 MG TAB PO SCH (09:57)
[2021-02-19] MEDS: Apixaban 2.5 MG TAB PO SCH ×2 (09:57→21:13)
[2021-02-19] MEDS: Nystatin Cream 30 GM TUBE TOP SCH ×3 (09:59→21:13)
[2021-02-19] MEDS: Dronedarone HCl 400 MG TAB PO SCH ×2 (10:23→21:13)
[2021-02-19 14:25] LABS: Bacteria/HPF None Seen HPF (None Seen); Bilirubin Negative (Negative); Blood, Urine Negative (Negative); Clarity Turbid (Clear); Glucose, Urine (Dipstick) Normal (Negative); Ketone, Urine Negative (Negative); Leukocyte Negative Leu/uL (Negative); Nitrite Negative (Negative); Protein, Urine (Dipstick) 30 mg/dL (Neg-Trace); RBC/HPF 0-3 HPF (0-3); Specific Gravity, Urine 1.027 (1.002-1.036); Squamous Epithelial 0-3 HPF (0-3); Urobilinogen Normal mg/dL (Less than 2); WBC/HPF 0-3 HPF (0-3); pH, Urine 5.5 (5.0-9.0)
[2021-02-19 14:35] LABS: Urine Culture Reflex No No
[2021-02-19 15:42] VITALS: BMI 21.9
[2021-02-19] MEDS ORDERED: Potassium Bicarbonate/Cit Ac 20 MEQ TAB PO SCH (16:30)
[2021-02-19 17:28] LABS: Albumin (w/Testosterone Panel) 3.4 g/dL
[2021-02-19] MEDS: cefTRIAXone\\ROCEPHIN 1 GM in Sodium Chloride 0.9% 100 ML IVPB SCH (17:47)
[2021-02-19 17:48] LABS: Sex Hormone Binding Globulin 56.3 nmol/L (11-78); Testosterone, Free 9.8 pg/mL (47-244); Testosterone, Total 71.9 ng/dL (221-716)
[2021-02-19] MEDS ORDERED: Levothyroxine 100 MCG SDV IVP SCH (19:45)
[2021-02-19] MEDS: Atorvastatin Calcium 20 MG TAB PO SCH (21:13)
[2021-02-19] MEDS: Metamucil PACK PO SCH (21:13)
[2021-02-20] MEDS: Sodium Chloride 0.9% 1,000 ML IV SCH ×2 (05:34→18:32)
[2021-02-20] MEDS ORDERED: Levothyroxine 100 MCG SDV IVP SCH ×2 (06:00)
[2021-02-20 06:45] LABS: ALT (SGPT) 32 U/L (8-55); AST (SGOT) 25 U/L (5-34); Albumin 3.2 g/dL (3.4-4.8); Alkaline Phosphatase 122 U/L (40-110); Bilirubin, Direct 0.6 mg/dL (0.1-0.3); Bilirubin, Total 0.9 mg/dL (0.2-1.2); Protein, Total 6.7 g/dL (5.8-8.1)
[2021-02-20] MEDS ORDERED: predniSONE 50 MG TAB PO SCH (08:00)
[2021-02-20 08:06] LABS: #Lymphocytes 0.6 thou/uL (1.20-3.40); #Monocytes 0.1 thou/uL (0.11-0.59); %Basophils 0.6 % (0.0-1.0); %Eosinophils 0.4 % (0.0-10.0); %Lymphocytes 13.1 % (21.0-51.0); %Monocytes 1.5 % (0.0-10.0); %Neutrophils 84.4 % (42.0-75.0); Hemoglobin 11.8 g/dL (14.0-18.0); Mean Corpuscular HGB CONC 30.7 g/dL (32.0-36.0); Mean Corpuscular Hemoglobin 25.8 pg (27.0-31.0); Mean Corpuscular Volume 84.1 fL (78.0-98.0); Platelet Count 260 thou/uL (130-400); RBC Distribution Width 18.3 % (11.5-14.5); Red Blood Cell (RBC) Count 4.58 mill/uL (4.70-6.10); White Blood Cell (WBC) Count 4.8 thou/uL (4.8-10.8)
[2021-02-20] MEDS: Calcium Carbonate 600 MG + Vit D TAB PO SCH (09:49)
[2021-02-20] MEDS: Potassium Chloride 20 MEQ TAB PO SCH (09:49)
[2021-02-20] MEDS: Apixaban 2.5 MG TAB PO SCH ×2 (09:49→20:30)
[2021-02-20] MEDS: Dronedarone HCl 400 MG TAB PO SCH ×2 (09:49→20:30)
[2021-02-20] MEDS: Aspirin Chewable 81 MG TAB PO SCH (09:49)
[2021-02-20 10:00] LABS: Anion Gap 15 mmol/L (10-20); BUN (Urea Nitrogen) 22 mg/dL (8.4-25.7); Calc. Creatinine Clearance 35 mL/min (70-130); Calcium 8.3 mg/dL (7.8-10.44); Carbon Dioxide 15 mmol/L (23-31); Chloride 111 mmol/L (98-107); Glucose 204 mg/dL (83-110); Potassium 4.3 mmol/L (3.5-5.1); Sodium 137 mmol/L (136-145)
[2021-02-20] MEDS ORDERED: NPH, Human Insulin Isophane 300 UNIT/3 ML VIAL SC SCH (11:15)
[2021-02-20 11:32] LABS: Follicle Stimulating Hormone 7.63 mIU/mL (See Ranges); Luteinizing Hormone 3.71 mIU/mL (See Ranges)
[2021-02-20] MEDS: Nystatin Cream 30 GM TUBE TOP SCH ×3 (12:03→20:30)
[2021-02-20] MEDS ORDERED: Thiamine HCl 200 MG/2 ML VIAL SLOW IVP SCH (18:45)
[2021-02-20] MEDS ORDERED: Cefepime 2 GM in Sodium Chloride 0.9% 100 ML IVPB SCH (19:30)
[2021-02-20 19:41] LABS: Bacteria/HPF None Seen HPF (None Seen); Bilirubin Negative (Negative); Blood, Urine Negative (Negative); Clarity Clear (Clear); Glucose, Urine (Dipstick) 500 mg/dL (Negative); Ketone, Urine Negative (Negative); Leukocyte Negative Leu/uL (Negative); Nitrite Negative (Negative); Protein, Urine (Dipstick) 30 mg/dL (Neg-Trace); RBC/HPF 0-3 HPF (0-3); Specific Gravity, Urine 1.026 (1.002-1.036); Squamous Epithelial 0-3 HPF (0-3); Urobilinogen Normal mg/dL (Less than 2); WBC/HPF 0-3 HPF (0-3); pH, Urine 5.5 (5.0-9.0)
[2021-02-20 19:44] LABS: Urine Culture Reflex No No
[2021-02-20 20:06] LABS: Lactic Acid 3.7 mmol/L (0.5-2.2)
[2021-02-20] MEDS: Cefepime 1 GM in Sodium Chloride 0.9% 100 ML IVPB SCH (20:29)
[2021-02-20] MEDS: Sodium Bicarbonate Tab 325 MG TAB PO SCH (20:30)
[2021-02-20] MEDS: Atorvastatin Calcium 20 MG TAB PO SCH (20:30)
[2021-02-20] MEDS: Metamucil PACK PO SCH (20:30)
[2021-02-20] MEDS ORDERED: Sodium Bicarbonate Tab 325 MG TAB PO SCH ×2 (21:00)
[2021-02-20 21:05] LABS: Anion Gap 14 mmol/L (10-20); BUN (Urea Nitrogen) 22 mg/dL (8.4-25.7); Calc. Creatinine Clearance 40 mL/min (70-130); Calcium 8.1 mg/dL (7.8-10.44); Carbon Dioxide 17 mmol/L (23-31); Chloride 111 mmol/L (98-107); Glucose 280 mg/dL (83-110); Sodium 138 mmol/L (136-145)
[2021-02-20] MEDS ORDERED: Lactated Ringer's 500 ML IV SCH (21:30)
[2021-02-20] MEDS: Vancomycin 1 GM in Premix Bag 1 BAG IVPB SCH (21:52)
[2021-02-21 00:57] LABS: #Lymphocytes 0.6 thou/uL (1.20-3.40); #Monocytes 0.6 thou/uL (0.11-0.59); #Neutrophils 8.2 thou/uL (1.40-6.50); %Basophils 0.1 % (0.0-1.0); %Eosinophils 0.2 % (0.0-10.0); %Lymphocytes 6.9 % (21.0-51.0); Hemoglobin 10.8 g/dL (14.0-18.0); Mean Corpuscular HGB CONC 31.5 g/dL (32.0-36.0); Mean Corpuscular Hemoglobin 26.5 pg (27.0-31.0); Mean Corpuscular Volume 84.1 fL (78.0-98.0); Mean Platelet Volume 7.9 fL (7.4-10.4); Platelet Count 245 thou/uL (130-400); RBC Distribution Width 17.9 % (11.5-14.5); Red Blood Cell (RBC) Count 4.09 mill/uL (4.70-6.10); White Blood Cell (WBC) Count 9.4 thou/uL (4.8-10.8)
[2021-02-21 01:13] LABS: Lactic Acid 2.9 mmol/L (0.5-2.2)
[2021-02-21 01:21] LABS: Anion Gap 13 mmol/L (10-20); BUN (Urea Nitrogen) 19 mg/dL (8.4-25.7); Calc. Creatinine Clearance 47 mL/min (70-130); Calcium 8.2 mg/dL (7.8-10.44); Carbon Dioxide 16 mmol/L (23-31); Chloride 111 mmol/L (98-107); Glucose 210 mg/dL (83-110); Sodium 136 mmol/L (136-145)
[2021-02-21 01:26] LABS: INR-International Normal Ratio 1.6; Prothrombin Time 19.3 sec (12.0-14.7)
[2021-02-21 01:36] LABS: HIV (1/2) Antibody/Antigen Non-Reactive (NonReactive); HIV 1/2 INDEX 0.09 S/CO (<1.00)
[2021-02-21] MEDS ORDERED: Sodium Chloride 0.9% 1,000 ML IV SCH ×4 (03:15→17:00)
[2021-02-21] MEDS: Levothyroxine Sodium 50 MCG TAB PO SCH (06:28)
[2021-02-21] MEDS: Lactated Ringer's 1,000 ML IV SCH ×2 (06:28→10:12)
[2021-02-21] MEDS: NPH, Human Insulin Isophane 300 UNIT/3 ML VIAL SC SCH (06:29)
[2021-02-21] MEDS ORDERED: Cefepime 2 GM in Sodium Chloride 0.9% 100 ML IVPB SCH (08:00)
[2021-02-21] MEDS: Apixaban 2.5 MG TAB PO SCH ×2 (08:29→20:58)
[2021-02-21] MEDS: Aspirin Chewable 81 MG TAB PO SCH (08:29)
[2021-02-21] MEDS: Folic Acid 1 MG TAB PO SCH (08:30)
[2021-02-21] MEDS: Potassium Chloride 20 MEQ TAB PO SCH (08:30)
[2021-02-21] MEDS: Calcium Carbonate 600 MG + Vit D TAB PO SCH (08:30)
[2021-02-21] MEDS: Sodium Bicarbonate Tab 325 MG TAB PO SCH ×3 (08:31→20:59)
[2021-02-21] MEDS: Thiamine 100 MG TAB PO SCH (08:31)
[2021-02-21] MEDS: Nystatin Cream 30 GM TUBE TOP SCH ×3 (08:53→20:59)
[2021-02-21] MEDS: Cefepime 1 GM in Sodium Chloride 0.9% 100 ML IVPB SCH ×2 (08:53→20:58)
[2021-02-21 12:13] LABS: Lactic Acid 2.8 mmol/L (0.5-2.2)
[2021-02-21] MEDS: Metamucil PACK PO SCH (20:59)
[2021-02-21] MEDS: Atorvastatin Calcium 20 MG TAB PO SCH (20:59)
[2021-02-21] MEDS: Vancomycin 1 GM in Premix Bag 1 BAG IVPB SCH (22:55)
[2021-02-22] MEDS: NPH, Human Insulin Isophane 300 UNIT/3 ML VIAL SC SCH (06:26)
[2021-02-22] MEDS: Levothyroxine Sodium 50 MCG TAB PO SCH (06:26)
[2021-02-22] MEDS ORDERED: NPH, Human Insulin Isophane 300 UNIT/3 ML VIAL SC SCH (06:30)
[2021-02-22 07:52] LABS: Anion Gap 12 mmol/L (10-20); BUN (Urea Nitrogen) 18 mg/dL (8.4-25.7); Calc. Creatinine Clearance 63 mL/min (70-130); Calcium 8.3 mg/dL (7.8-10.44); Carbon Dioxide 19 mmol/L (23-31); Chloride 112 mmol/L (98-107); Glucose 114 mg/dL (83-110); Potassium 3.9 mmol/L (3.5-5.1); Sodium 139 mmol/L (136-145)
[2021-02-22 07:54] LABS: White Blood Cell (WBC) Count 13.7 thou/uL (4.8-10.8)
[2021-02-22] MEDS: Apixaban 2.5 MG TAB PO SCH ×2 (08:47→20:42)
[2021-02-22] MEDS: Thiamine 100 MG TAB PO SCH (08:47)
[2021-02-22] MEDS: Aspirin Chewable 81 MG TAB PO SCH (08:47)
[2021-02-22] MEDS: Folic Acid 1 MG TAB PO SCH (08:47)
[2021-02-22] MEDS: Calcium Carbonate 600 MG + Vit D TAB PO SCH (08:47)
[2021-02-22] MEDS: Cefepime 1 GM in Sodium Chloride 0.9% 100 ML IVPB SCH ×2 (08:47→21:14)
[2021-02-22] MEDS: Potassium Chloride 20 MEQ TAB PO SCH (08:47)
[2021-02-22] MEDS: Sodium Bicarbonate Tab 325 MG TAB PO SCH ×3 (08:47→20:42)
[2021-02-22] MEDS: Nystatin Cream 30 GM TUBE TOP SCH ×4 (08:48→21:24)
[2021-02-22 08:54] LABS: #Basophils 0.1 thou/uL (0.0-0.2); #Lymphocytes 0.7 thou/uL (1.20-3.40); #Monocytes 0.7 thou/uL (0.11-0.59); #Neutrophils 12.3 thou/uL (1.40-6.50); %Basophils 0.4 % (0.0-1.0); %Eosinophils 0.2 % (0.0-10.0); %Lymphocytes 5.1 % (21.0-51.0); %Monocytes 4.9 % (0.0-10.0); %Neutrophils 89.5 % (42.0-75.0); Hemoglobin 10.9 g/dL (14.0-18.0); Mean Corpuscular HGB CONC 29.2 g/dL (32.0-36.0); Mean Corpuscular Hemoglobin 25.3 pg (27.0-31.0); Mean Corpuscular Volume 86.8 fL (78.0-98.0); Platelet Count 272 thou/uL (130-400); RBC Distribution Width 17.9 % (11.5-14.5)
[2021-02-22 08:55] LABS: Anisocytosis SLIGHT = 6-15 cells (100X) (0-5/hpf); Hypochromia SLIGHT = 6-15 cells (100X) (0-5/hpf); Large Platelets SLIGHT; MDiff Complete? YES; Platelet Morphology Comment Appears Adequate
[2021-02-22] MEDS ORDERED: Iopamidol-370 76% 500 ML 1 ML ONE (09:35)
[2021-02-22 10:23] LABS: Critical Call Chem-Lactate 2no.ae at 1023; Lactic Acid 6.7 mmol/L (0.5-2.2)
[2021-02-22] MEDS ORDERED: NS 0.9% w/ 20 MEQ KCL 1,000 ML/1,000 ML BAG IV SCH (11:15)
[2021-02-22] MEDS ORDERED: Sodium Chloride 0.9% 1,000 ML IV SCH (11:15)
[2021-02-22 11:29] LABS: #Lymphocytes 0.3 thou/uL (1.20-3.40); #Monocytes 0.3 thou/uL (0.11-0.59); #Neutrophils 14.6 thou/uL (1.40-6.50); %Basophils 0.2 % (0.0-1.0); %Eosinophils 0.1 % (0.0-10.0); %Monocytes 1.8 % (0.0-10.0); Hemoglobin 11.1 g/dL (14.0-18.0); Mean Corpuscular HGB CONC 30.9 g/dL (32.0-36.0); Mean Corpuscular Hemoglobin 26.2 pg (27.0-31.0); Mean Platelet Volume 7.7 fL (7.4-10.4); Platelet Count 263 thou/uL (130-400); RBC Distribution Width 17.7 % (11.5-14.5); Red Blood Cell (RBC) Count 4.25 mill/uL (4.70-6.10); White Blood Cell (WBC) Count 15.2 thou/uL (4.8-10.8)
[2021-02-22 14:36] LABS: Lactic Acid 6.1 mmol/L (0.5-2.2)
[2021-02-22] MEDS ORDERED: Sodium Bicarbonate Tab 325 MG TAB PO SCH (15:30)
[2021-02-22] MEDS: HumaLOG 300 UNITS/3 ML VIAL SC PRN ×2 (17:04→21:19)
[2021-02-22 17:28] LABS: EliA Thy New Method **** NEW METHOD ****
[2021-02-22 18:05] LABS: Bacteria/HPF None Seen HPF (None Seen); Bilirubin Negative (Negative); Blood, Urine Negative (Negative); Clarity Clear (Clear); Glucose, Urine (Dipstick) 200 mg/dL (Negative); Ketone, Urine Negative (Negative); Leukocyte Negative Leu/uL (Negative); Nitrite Negative (Negative); Protein, Urine (Dipstick) 20 mg/dL (Neg-Trace); RBC/HPF 0-3 HPF (0-3); Squamous Epithelial 0-3 HPF (0-3); Urobilinogen Normal mg/dL (Less than 2); WBC/HPF 0-3 HPF (0-3); pH, Urine 5.5 (5.0-9.0)
[2021-02-22 18:13] LABS: Specific Gravity, Urine 1.054 (1.002-1.036)
[2021-02-22] MEDS ORDERED: Spironolactone 100 MG TAB PO SCH (19:15)
[2021-02-22] MEDS: Atorvastatin Calcium 20 MG TAB PO SCH (20:42)
[2021-02-22] MEDS: Metamucil PACK PO SCH (20:46)
[2021-02-22] MEDS ORDERED: Vancomycin 1 GM in Premix Bag 1 BAG IVPB SCH (21:00)
[2021-02-22 21:17] LABS: Vancomycin, Trough 8.2 ug/mL
[2021-02-23 05:03] LABS: #Lymphocytes 0.7 thou/uL (1.20-3.40); #Monocytes 0.9 thou/uL (0.11-0.59); #Neutrophils 12.1 thou/uL (1.40-6.50); %Basophils 0.1 % (0.0-1.0); %Eosinophils 0.2 % (0.0-10.0); %Lymphocytes 4.9 % (21.0-51.0); %Monocytes 6.9 % (0.0-10.0); %Neutrophils 87.9 % (42.0-75.0); Mean Corpuscular HGB CONC 30.1 g/dL (32.0-36.0); Mean Corpuscular Hemoglobin 25.9 pg (27.0-31.0); Mean Platelet Volume 7.9 fL (7.4-10.4); Platelet Count 253 thou/uL (130-400); RBC Distribution Width 17.8 % (11.5-14.5); Red Blood Cell (RBC) Count 4.24 mill/uL (4.70-6.10); White Blood Cell (WBC) Count 13.7 thou/uL (4.8-10.8)
[2021-02-23 05:28] LABS: Phosphorus 2.2 mg/dL (2.3-4.7)
[2021-02-23 05:30] LABS: Anion Gap 11 mmol/L (10-20); BUN (Urea Nitrogen) 18 mg/dL (8.4-25.7); Calc. Creatinine Clearance 66 mL/min (70-130); Calcium 8.6 mg/dL (7.8-10.44); Carbon Dioxide 18 mmol/L (23-31); Chloride 114 mmol/L (98-107); Glucose 113 mg/dL (83-110); Magnesium 1.9 mg/dL (1.6-2.6); Potassium 4.1 mmol/L (3.5-5.1); Sodium 139 mmol/L (136-145)
[2021-02-23] MEDS: Levothyroxine Sodium 50 MCG TAB PO SCH (06:14)
[2021-02-23] MEDS: NPH, Human Insulin Isophane 300 UNIT/3 ML VIAL SC SCH (06:16)
[2021-02-23] MEDS ORDERED: Furosemide 20 MG TAB PO SCH (09:00)
[2021-02-23] MEDS: Apixaban 2.5 MG TAB PO SCH ×2 (09:07→21:16)
[2021-02-23] MEDS: Calcium Carbonate 600 MG + Vit D TAB PO SCH (09:07)
[2021-02-23] MEDS: Sodium Bicarbonate Tab 325 MG TAB PO SCH ×3 (09:07→21:16)
[2021-02-23] MEDS: Aspirin Chewable 81 MG TAB PO SCH (09:08)
[2021-02-23] MEDS: Thiamine 100 MG TAB PO SCH (09:08)
[2021-02-23] MEDS: Ferrous Sulfate 325 MG TAB PO SCH (09:08)
[2021-02-23] MEDS: Spironolactone 100 MG TAB PO SCH (09:09)
[2021-02-23] MEDS: Folic Acid 1 MG TAB PO SCH (09:09)
[2021-02-23] MEDS: Nystatin Cream 30 GM TUBE TOP SCH ×3 (09:10→21:17)
[2021-02-23] MEDS: Torsemide 10 MG TAB PO SCH (09:12)
[2021-02-23 11:03] LABS: ALT (SGPT) 37 U/L (8-55); AST (SGOT) 26 U/L (5-34); Albumin 3.3 g/dL (3.4-4.8); Alkaline Phosphatase 111 U/L (40-110); Bilirubin, Direct 0.8 mg/dL (0.1-0.3); Bilirubin, Total 1.2 mg/dL (0.2-1.2); Protein, Total 6.6 g/dL (5.8-8.1)
[2021-02-23 11:22] LABS: Lactic Acid 4.3 mmol/L (0.5-2.2)
[2021-02-23] MEDS: Metamucil PACK PO SCH (21:16)
[2021-02-23] MEDS: Atorvastatin Calcium 20 MG TAB PO SCH (21:16)
[2021-02-24] MEDS: NPH, Human Insulin Isophane 300 UNIT/3 ML VIAL SC SCH (06:01)
[2021-02-24] MEDS: Levothyroxine Sodium 50 MCG TAB PO SCH (06:01)
[2021-02-24 07:57] VITALS: TEMP 97.6
[2021-02-24] MEDS: Folic Acid 1 MG TAB PO SCH (09:08)
[2021-02-24] MEDS: Aspirin Chewable 81 MG TAB PO SCH (09:08)
[2021-02-24] MEDS: Apixaban 2.5 MG TAB PO SCH (09:08)
[2021-02-24] MEDS: Calcium Carbonate 600 MG + Vit D TAB PO SCH (09:08)
[2021-02-24] MEDS: Sodium Bicarbonate Tab 325 MG TAB PO SCH (09:08)
[2021-02-24] MEDS: Spironolactone 100 MG TAB PO SCH (09:08)
[2021-02-24] MEDS: Torsemide 10 MG TAB PO SCH (09:09)
[2021-02-24] MEDS: Thiamine 100 MG TAB PO SCH (09:09)
[2021-02-24] MEDS: Nystatin Cream 30 GM TUBE TOP SCH (09:09)
[2021-02-24 11:33] VITALS: BP 139/82
[2021-02-24] MEDS ORDERED: Apixaban 5 MG TAB PO SCH (21:00)
[2021-02-24] MEDS ORDERED: Apixaban 2.5 MG TAB PO SCH (21:00)
== END 2021-02-24 13:08 | disposition home or self-care (01) | DRG 314 ==
LOC: 2NO 12:29
PROVIDERS: ADMIT Internal Medicine; ATTEND Internal Medicine
DX: I27.22 Pulmonary hypertension due to left heart disease (principal); I50.33 Acute on chronic diastolic (congestive) heart failure; J84.9 Interstitial pulmonary disease, unspecified; J67.9 Hypersensitivity pneumonitis due to unspecified organic dust; I13.0 Hypertensive heart and chronic kidney disease with heart failure and stage 1 through stage 4 chronic kidney disease, or unspecified chronic kidney disease; E87.2 Acidosis; N17.9 Acute kidney failure, unspecified; E23.0 Hypopituitarism; J96.11 Chronic respiratory failure with hypoxia; I27.23 Pulmonary hypertension due to lung diseases and hypoxia; E03.9 Hypothyroidism, unspecified; Z66 Do not resuscitate; Z20.822 Contact with and (suspected) exposure to COVID-19; E78.5 Hyperlipidemia, unspecified; E11.22 Type 2 diabetes mellitus with diabetic chronic kidney disease; R91.8 Other nonspecific abnormal finding of lung field; I48.0 Paroxysmal atrial fibrillation; K21.9 Gastro-esophageal reflux disease without esophagitis; B37.2 Candidiasis of skin and nail; I50.810 Right heart failure, unspecified; N18.31 Chronic kidney disease, stage 3a; Z99.81 Dependence on supplemental oxygen; Z79.82 Long term (current) use of aspirin; Z79.01 Long term (current) use of anticoagulants; Z79.84 Long term (current) use of oral hypoglycemic drugs; Z79.899 Other long term (current) drug therapy; Z86.11 Personal history of tuberculosis; Z85.820 Personal history of malignant melanoma of skin; Z86.711 Personal history of pulmonary embolism; Z95.0 Presence of cardiac pacemaker; Z90.49 Acquired absence of other specified parts of digestive tract; Z86.718 Personal history of other venous thrombosis and embolism
CPT/HCPCS: 36415; 36416; 71045; 71275; 76770; 80048; 80076; 80202; 81001; 82010; 82040; 82436; 82533; 82550; 83001; 83002; 83605; 83735; 84100; 84133; 84270; 84403; 84436; 84443; 84481; 85025; 85610; 85652; 85730; 86140; 86376; 86800; 87040; 87389; 93306; 94640; J0692; J0696; J1100; J1815; J3370; J3411; J3480; J3490; J7050; J7120; J7620; Q9967